=== PATIENT | female | born 1935 | race Caucasian/White ===

== ENCOUNTER 2019-06-03 07:44 | Emergency (ER) | payer OTHER, MEDICAID ==
[~2019-06-03] VITALS: Ht 152.4 cm; Wt 68.0 kg
[2019-06-03 07:45] VITALS: BP_SYST 147
[2019-06-03] MEDS ORDERED: NACL 0.9% 1,000 ML IV ONE (08:00)
--- NOTE | 2019-06-03 08:05 | NUR ---
PATIENT PRESENTS TO THE ER WITH HX OF ELEVATED BLOOD GLUCOSE THIS AM IN THE 500 RANGE; MORNING MEDICATIONS WERE ADMINISTERED AND BLOOD GLUCOSE AT ADMISSION WAS 311; PATIENT HAS HEP LOCK ON ARRIVAL #22 LEFT FOREARM; NO TRAUMA, NO OTHER REMARKABLE S/S; PATIENT IS DIAPERED; PATIENT TO ER BED #3 AT 0800 AND ERMD EVALUATION AT 0810
[2019-06-03 08:37] LABS: BASOPHILS % (AUTO) 0.8 % (0.0-2.0); EOSINOPHILS # (AUTO) 0.1 K/uL (0.0-0.4); EOSINOPHILS % (AUTO) 2.6 % (0.0-4.0); HEMATOCRIT 27.4 % (36-48); HEMOGLOBIN 9.2 g/dL (12.0-16.0); LYMPHOCYTES # (AUTO) 1.4 K/uL (1.0-5.5); LYMPHOCYTES % (AUTO) 25.5 % (20.5-51.5); MEAN CORPUSCULAR HEMOGLOBIN 30 pg (27-31); MEAN CORPUSCULAR HGB CONC 33 % (32-36); MEAN CORPUSCULAR VOLUME 88 fL (79.0-98.0); MONOCYTES # (AUTO) 0.5 K/uL (0.0-1.0); MONOCYTES % (AUTO) 8.3 % (1.7-9.3); NEUTROPHILS # (AUTO) 3.4 K/uL (1.8-7.7); NEUTROPHILS % (AUTO) 62.8 % (40.0-70.0); PLATELET COUNT (AUTO) 211 K/uL (130-430); RED CELL DISTRIBUTION WIDTH 14.2 % (9.0-15.0); WHITE BLOOD COUNT (AUTO) 5.5 K/uL (4.8-10.8)
--- NOTE | 2019-06-03 08:46 | NUR ---
EKG DC'ED BY ERMD; PATIENT CATHED FOR URINE PER ERMD VERBAL ORDER AND UX PERFORMED
[2019-06-03 08:51] LABS: ANION GAP 8 (5-15); CALCIUM 8.7 mg/dL (8.4-11.0); CHLORIDE 98 mmol/L (98-107); CREATININE 1.52 mg/dL (0.55-1.30); GLUCOSE 364 mg/dL (70-99); POTASSIUM 4.8 mmol/L (3.5-5.1); SODIUM SERUM 131 mmol/L (136-145); UREA NITROGEN, BLOOD 44 mg/dL (8-21)
[2019-06-03 08:56] LABS: ALANINE AMINOTRANSFERASE 33 U/L (12-78); ALBUMIN 3.6 g/dL (3.4-4.8); ASPARTATE AMINOTRANSFERASE 17 U/L (10-37); TOTAL BILIRUBIN 1.2 mg/dL (0.0-1.0)
[2019-06-03] MEDS ORDERED: INSULIN REGULAR, HUMAN 10 UNITS/0.1 ML INJ IVP ONE (09:15)
[2019-06-03 10:11] VITALS: BP_SYST 145
--- NOTE | 2019-06-03 10:17 | NUR ---
REASSESSMENT BY ERMD; PATIENT PREPARED FOR DISCHARGE; IV OUT AND DRESSED AND ACI GIVEN TO PATIENT/CAREGIVER WHO INDICTED FULL UNDERSTANDING; DISCHARGED AT 1030 VIA WC; IMPROVED WITH BLOOD GLUCOSE OF 248
== END 2019-06-03 10:30 | disposition home or self-care (01) ==
LOC: SED 07:44
DX: E11.65 Type 2 diabetes mellitus with hyperglycemia (principal); I10 Essential (primary) hypertension
CPT/HCPCS: 36415; 80053; 82962; 85025; 96361; 96374; 99283; J1815; J7030

== ENCOUNTER 2019-07-26 09:41 | Emergency (ER) | payer OTHER, MEDICAID ==
[~2019-07-26] VITALS: Ht 157.5 cm; Wt 81.6 kg
[2019-07-26 09:41] VITALS: BP_SYST 121
--- NOTE | 2019-07-26 09:41 | NUR ---
Placed in room 7. Placed on potline monitor, blood pressure machine and pulse oximeter. To gown for exam. Side rails up. Report given to SIRENA Ambrocio.
--- NOTE | 2019-07-26 09:45 | NUR ---
PT CAME TO ER FOR HYPERGLYCEMIA, GLUCOSE IS 404 UPON ARRIVAL. PT RESTING IN [facility] AWAITING
--- NOTE | 2019-07-26 09:58 | NUR ---
ER Dr. Smart at bedside examining patient.
[2019-07-26] MEDS ORDERED: PARO-41 PO (10:04)
[2019-07-26] MEDS ORDERED: LEVO25TA7 PO (10:04)
[2019-07-26] MEDS ORDERED: GLIP5TAB26 PO (10:04)
[2019-07-26] MEDS ORDERED: CELE100C PO (10:04)
[2019-07-26] MEDS ORDERED: MELO15TA13 PO (10:04)
[2019-07-26] MEDS ORDERED: INSU100V11 SQ (10:04)
[2019-07-26] MEDS ORDERED: CHOL500013 PO (10:04)
[2019-07-26] MEDS ORDERED: METO50TA7 PO (10:04)
[2019-07-26] MEDS ORDERED: METF-510 PO (10:04)
[2019-07-26] MEDS ORDERED: ROPI1TAB4 PO (10:04)
[2019-07-26] MEDS ORDERED: LIP40 PO (10:04)
[2019-07-26] MEDS ORDERED: LISI40TA4 PO (10:04)
[2019-07-26] MEDS ORDERED: TRAMADOL HCL PO (10:04)
--- NOTE | 2019-07-26 10:04 | NUR ---
Medication reconciliation completed with information provided by [facility]. Any prior medication reconciliation on file was reviewed and corrected.
[2019-07-26] MEDS ORDERED: NACL 0.9% 1,000 ML IV ONE (10:15)
[2019-07-26 11:23] LABS: BASOPHILS % (AUTO) 0.8 % (0.0-2.0); EOSINOPHILS # (AUTO) 0.1 K/uL (0.0-0.4); EOSINOPHILS % (AUTO) 2.6 % (0.0-4.0); HEMOGLOBIN 9.2 g/dL (12.0-16.0); LYMPHOCYTES # (AUTO) 1.7 K/uL (1.0-5.5); LYMPHOCYTES % (AUTO) 29.1 % (20.5-51.5); MEAN CORPUSCULAR HEMOGLOBIN 29 pg (27-31); MEAN CORPUSCULAR HGB CONC 33 % (32-36); MEAN CORPUSCULAR VOLUME 88 fL (79.0-98.0); MONOCYTES # (AUTO) 0.6 K/uL (0.0-1.0); MONOCYTES % (AUTO) 10.7 % (1.7-9.3); NEUTROPHILS # (AUTO) 3.3 K/uL (1.8-7.7); NEUTROPHILS % (AUTO) 56.8 % (40.0-70.0); PLATELET COUNT (AUTO) 185 K/uL (130-430); RED CELL DISTRIBUTION WIDTH 13.6 % (9.0-15.0); WHITE BLOOD COUNT (AUTO) 5.8 K/uL (4.8-10.8)
[2019-07-26 11:26] LABS: ANION GAP 11 (5-15); CALCIUM 8.4 mg/dL (8.4-11.0); CHLORIDE 104 mmol/L (98-107); GLUCOSE 375 mg/dL (70-99); POTASSIUM 4.5 mmol/L (3.5-5.1); SODIUM SERUM 138 mmol/L (136-145); UREA NITROGEN, BLOOD 36 mg/dL (8-21)
[2019-07-26 11:29] LABS: INR 0.9 (0.8-1.2); PROTHROMBIN TIME 9.3 SECS (9.5-12.5)
[2019-07-26 11:31] LABS: ALANINE AMINOTRANSFERASE 39 U/L (12-78); ALBUMIN 3.3 g/dL (3.4-4.8); ASPARTATE AMINOTRANSFERASE 35 U/L (10-37); TOTAL BILIRUBIN 0.5 mg/dL (0.0-1.0)
--- NOTE | 2019-07-26 11:41 | NUR ---
PT ASLEEP IN BED NO S/S OF DISTRESS AT THIS TIME VSS
[2019-07-26] MEDS ORDERED: INSULIN REGULAR, HUMAN 10 UNITS/0.1 ML INJ IVP ONE (12:15)
[2019-07-26 13:30] VITALS: BP_SYST 119
--- NOTE | 2019-07-26 13:30 | NUR ---
Patient given written and verbal discharge instructions and verbalizes understanding. ER MD discussed with patient the results and treatment provided. Patient in stable condition. ID arm band removed. IV catheter removed intact and dressing applied, no active bleeding. Patient educated on pain management and to follow up with PMD. Pain Scale 0. Opportunity for questions provided and answered. Medication side effect fact sheet provided.
== END 2019-07-26 13:30 | disposition home or self-care (01) ==
LOC: SED 09:41
DX: E11.65 Type 2 diabetes mellitus with hyperglycemia (principal); J02.9 Acute pharyngitis, unspecified; I10 Essential (primary) hypertension; E03.9 Hypothyroidism, unspecified; Z79.4 Long term (current) use of insulin; Z79.899 Other long term (current) drug therapy
CPT/HCPCS: 36415; 71045; 80053; 81002; 82962; 84484; 85025; 85610; 85730; 93005; 96360; 99285; J7030

== ENCOUNTER 2020-02-23 18:42 | Inpatient (IN) | payer OTHER, MEDICAID, SELFPAY ==
[~2020-02-23] VITALS: Ht 162.6 cm; Wt 77.1 kg
[2020-02-23 18:42] VITALS: BP_SYST 128
[~2020-02-23 18:42] MED LIST: CELE100C PO; CHOL500013 PO; GLIP5TAB26 PO; INSU100V11 SQ; LEVO25TA7 PO; LIP40 PO; LISI40TA4 PO; MELO15TA13 PO; METF-510 PO; METO50TA7 PO; PARO-41 PO; ROPI1TAB6 PO; TRAMADOL HCL PO
[2020-02-23] MEDS ORDERED: INSU100I26 SQ (18:52)
[2020-02-23] MEDS ORDERED: FURO20TA4 PO (18:52)
[2020-02-23] MEDS ORDERED: HYDR-3917 PO (18:52)
[2020-02-23] MEDS ORDERED: SSNOVOLOG SUBCUT (18:52)
--- NOTE | 2020-02-23 18:53 | NUR ---
Medication reconciliation completed with information provided by patient's medication list. Any prior medication reconciliation on file was reviewed and corrected.
--- NOTE | 2020-02-23 18:55 | NUR ---
Pt came to ER after she rolled out of bed, she was found on ground with no injuries. Began to desaturate with school principal on scene and was sent over via BLS. Pt resting in rney on 1L nasal cannula, resting comfortably, no distress.
--- NOTE | 2020-02-23 19:00 | NUR ---
ER at bedside examining patient.
--- NOTE | 2020-02-23 19:05 | NUR ---
# 20 gauge angiocath placed to R HAND. Use of asceptic technique. Opsite placed over site. Blood return noted. Blood for lab drawn from site. Flushed with 10 cc of normal saline. No evidence of infiltration noted. Patient tolerated well.
--- NOTE | 2020-02-23 19:15 | NUR ---
REPORT RECEIVED FROM SIRENA NGUYEN
[2020-02-23] MEDS ORDERED: NACL 0.9% 1,000 ML IV ONE (19:30)
--- NOTE | 2020-02-23 19:39 | NUR ---
XRAY AT THE BEDSIDE
[2020-02-23 19:51] LABS: BASOPHILS # (AUTO) 0.1 K/uL (0.0-0.2); EOSINOPHILS # (AUTO) 0.2 K/uL (0.0-0.4); EOSINOPHILS % (AUTO) 3.8 % (0.0-4.0); HEMATOCRIT 31.2 % (36-48); HEMOGLOBIN 10.2 g/dL (12.0-16.0); LYMPHOCYTES # (AUTO) 1.1 K/uL (1.0-5.5); LYMPHOCYTES % (AUTO) 22.8 % (20.5-51.5); MEAN CORPUSCULAR HEMOGLOBIN 27 pg (27-31); MEAN CORPUSCULAR HGB CONC 33 % (32-36); MEAN CORPUSCULAR VOLUME 81 fL (79.0-98.0); MONOCYTES # (AUTO) 0.4 K/uL (0.0-1.0); NEUTROPHILS # (AUTO) 3.3 K/uL (1.8-7.7); NEUTROPHILS % (AUTO) 65.4 % (40.0-70.0); PLATELET COUNT (AUTO) 212 K/uL (130-430); RED BLOOD CELL COUNT(AUTO) 3.83 MIL/uL (4.2-6.2); RED CELL DISTRIBUTION WIDTH 16.1 % (9.0-15.0)
[2020-02-23 20:02] LABS: ANION GAP 7 (5-15); CALCIUM 9.1 mg/dL (8.4-11.0); CHLORIDE 98 mmol/L (98-107); CREATININE 2.37 mg/dL (0.55-1.30); GLUCOSE 295 mg/dL (70-99); POTASSIUM 4.8 mmol/L (3.5-5.1); SODIUM SERUM 134 mmol/L (136-145); UREA NITROGEN, BLOOD 63 mg/dL (8-21)
[2020-02-23 20:09] LABS: PROTHROMBIN TIME 10.1 SECS (9.5-12.5)
--- NOTE | 2020-02-23 20:15 | NUR ---
# 14 FR In and Out catheter with use of sterile technique. Immediate return of 20 ml CLEAR, YELLO urine noted. Urine sample collected and sent to lab. Pt tolerated procedure WELL. Patient unable to toilet self.
[2020-02-23 20:18] LABS: ALANINE AMINOTRANSFERASE 32 U/L (12-78); ALBUMIN 3.1 g/dL (3.4-4.8); ASPARTATE AMINOTRANSFERASE 42 U/L (10-37); FREE T4 (FREE THYROXINE) 0.8 ng/dl (0.8-1.5); LACTATE DEHYDROGENASE 265 U/L (81-234); THYROID STIMULATING HORMONE 2.94 uIu/mL (0.36-3.74); TOTAL BILIRUBIN 0.7 mg/dL (0.0-1.0)
--- NOTE | 2020-02-23 20:20 | NUR ---
COVID SWABS DONE, SPECIMENS SENT TO LAB
[2020-02-23] MEDS ORDERED: AZITHROMYCIN 500 MG in NS 250 ML IV ONE (20:30)
[2020-02-23] MEDS ORDERED: cefTRIAXone 1 GM IVPB PREMIX 50 ML IV ONE (20:30)
[2020-02-23 20:40] LABS: BILIRUBIN,URINE NEGATIVE (NEGATIVE); BLOOD, URINE NEGATIVE (NEGATIVE); CLARITY/URINE CLEAR (CLEAR); COLOR,URINE YELLOW (YELLOW); GLUCOSE,URINE 3+ (NEGATIVE); KETONES,URINE NEGATIVE (NEGATIVE); LEUKOCYTE ESTERASE ,URINE NEGATIVE (NEGATIVE); NITRITE, URINE NEGATIVE (NEGATIVE); PH,URINE 5.5 (5.0-8.0); PROTEIN URINE NEGATIVE (NEGATIVE); UROBILINOGEN,URINE 0.2 (0.2-1.0)
--- NOTE | 2020-02-23 20:50 | NUR ---
PT TOOK OUT 20G IV ON LEFT WRIST. BLEEDING CONTROLLED.
[2020-02-23 21:01] LABS: RBC,URINE 0-3 /HPF (0-3); WBC,URINE 0-3 /HPF (0-3)
[2020-02-23 21:02] LABS: BACTERIA,URINE MODERATE /HPF (None Seen); URINE AMORPHOUS URATE 2+ /HPF (None Seen)
[2020-02-23 21:03] LABS: MUCUS,URINE None Seen /LPF (None Seen)
--- NOTE | 2020-02-23 21:05 | NUR ---
# 20 gauge angiocath placed to LEFT FOREARM. Use of asceptic technique. Opsite placed over site. Blood return noted. Flushed with 10 cc of normal saline. No evidence of infiltration noted. Patient tolerated well.
[2020-02-23 21:07] LABS: CKMB RELATIVE INDEX 1.2 (0.0-2.9); CREATINE KINASE MB 2.9 ng/mL (0-3.6)
[2020-02-23 21:16] LABS: C-REACTIVE PROTEIN QUANT 2.1 mg/dL (0-0.5)
[2020-02-23] MEDS ORDERED: AZITHROMYCIN 500 MG/VIAL (ZITHROMAX) IV ONE (21:22)
--- NOTE | 2020-02-23 21:28 | NUR ---
SPOKE WITH CHARGE NURSE TO REQUEST TELE BED.
--- NOTE | 2020-02-23 21:28 | NUR ---
ADMIT ORDERS RECEIVED FROM DR. NARVAEZ.
[2020-02-23] MEDS ORDERED: IPRATROPIUM/ALBUTEROL SULFATE 3 ML AMPUL.NEB (DUONEB) INH ONE (21:30)
[2020-02-23] MEDS ORDERED: DEXAMETHASONE SOD PHOSPHATE 4 MG/ML VIAL IVP ONE (21:30)
--- NOTE | 2020-02-23 21:30 | NUR ---
CALLED RESPIRATORY FOR BREATHING TX
--- NOTE | 2020-02-23 22:10 | NUR ---
Patient will be admitted to care of . Admitted to TELE unit. Will go to room 2. Belongings list completed. Complete and up to date summary report printed. SBAR report to be given at bedside with opportunity for questions.
--- NOTE | 2020-02-23 22:24 | NUR ---
ADMISSION: The patient, MARIA DOLORES MONDRAGON, 84 y/o, F admitted by MAIA NARVAEZ MD, with the diagnosis of Acute Respiratory Failure and Pneumonia , to room 134 B . [facility] RN is aware. Addendum: 02/23/20 at 2228 by Oscar Tapia RN PT IS PUI FOR COVID 19 , WILL MAINTAIN ISOLATION PRECAUTION .
[2020-02-23 22:45] VITALS: BP_SYST 129
--- NOTE | 2020-02-23 22:45 | NUR ---
NOTES: Dr. Moreno was here, seen pt.
[2020-02-23] MEDS ORDERED: IPRATROPIUM/ALBUTEROL SULFATE 3 ML AMPUL.NEB (DUONEB) INH PRN (23:00)
[2020-02-23] MEDS ORDERED: ACETAMINOPHEN 325 MG TABLET PO PRN (23:00)
[2020-02-23] MEDS ORDERED: AZITHROMYCIN 500 MG in NS 250 ML IV SCH (23:00)
[2020-02-23] MEDS ORDERED: DEXTROSE 50% JECT 50 ML DISP.SYRIN IVP PRN (23:00)
[2020-02-23] MEDS ORDERED: 0.45% NACL 1,000 ML IV SCH (23:00)
--- NOTE | 2020-02-23 23:00 | NUR ---
ADMISSION PHYSICAL ASSESSMENT NOTES; pt. very restless, speaks Portugese, moves all extremities, no weakness noted. IV NS bolus still infusing. took over from nurse Moore after admission. unable to get information from pt. placed on school lunch monitor. placed on fall risk, bed alarm on. contact isolation observed for PUI Covid.
[2020-02-23] MEDS ORDERED: PANTOPRAZOLE SODIUM 40 MG/VIAL (PROTONIX) IVP ONE (23:15)
[2020-02-23 23:19] VITALS: BP_SYST 115
[2020-02-23] MEDS ORDERED: ASPIRIN 81 MG TABLET(ECOTRIN) PO ONE (23:30)
--- NOTE | 2020-02-23 23:30 | NUR ---
NOTES: still restless, cannot keep still. la cath insertion done aseptically with nurse Oscar helping per MD ordered, drained yellow urine output, urine specimen will be sent to lab.
--- NOTE | 2020-02-24 | NUR ---
NOTES: due po meds given and able to swallow. another IV antibiotic order, NS bolus completed.
[2020-02-24] MEDS: QUEtiapine FUMARATE 25 MG TABLET PO SCH ×2 (00:02→18:44)
[2020-02-24] MEDS: PIPERACILLIN/TAZO 2.25G/DEX-IS 50 ML IV SCH ×5 (00:05→23:53)
[2020-02-24] MEDS ORDERED: PIPERACILLIN/TAZOBACTAM 2.25 GM VIAL IV ONE (00:09)
[2020-02-24] MEDS: HEPARIN SODIUM,PORCINE 5,000 UNITS/ML VIAL SUBCUT SCH ×3 (00:09→21:43)
[2020-02-24] MEDS: traMADol HCL HCL 50 MG TABLET (ULTRAM) PO SCH ×5 (00:18→23:54)
--- NOTE | 2020-02-24 00:30 | NUR ---
NOTES: employee communications specialist patches replaced and tele box. still restless but less, condition guarded. fall risk precaution.unable to use call ight, frequent rounds.
[2020-02-24 00:42] LABS: BILIRUBIN,URINE NEGATIVE (NEGATIVE); BLOOD, URINE NEGATIVE (NEGATIVE); CLARITY/URINE CLEAR (CLEAR); COLOR,URINE YELLOW (YELLOW); GLUCOSE,URINE 3+ (NEGATIVE); KETONES,URINE NEGATIVE (NEGATIVE); LEUKOCYTE ESTERASE ,URINE NEGATIVE (NEGATIVE); NITRITE, URINE NEGATIVE (NEGATIVE); PH,URINE 5.5 (5.0-8.0); PROTEIN URINE NEGATIVE (NEGATIVE); UROBILINOGEN,URINE 0.2 (0.2-1.0)
--- NOTE | 2020-02-24 01:28 | NUR ---
NOTES: pt. sleeping when checked. fall risk precautions observed. IVF infusing.
--- NOTE | 2020-02-24 03:05 | NUR ---
NOTES: charge nurse Oscar saying pt. was trying to get out of bed earlier. pt. calmer and sleeping now when checked. on fall risk.
--- NOTE | 2020-02-24 04:23 | NUR ---
NOTES: condition continue to monitor. pt. sleeping but occasionally toss and turn.
--- NOTE | 2020-02-24 05:50 | NUR ---
NOTES: Nuc Veeqo tech here, to take pt. for VQ scan( lung scan), went with pt. quite restless on the test.
--- NOTE | 2020-02-24 06:15 | NUR ---
NOTES: came back from [employer], was about to do CT scan of the head but pt. quite restless, will have to call MD for sedation for the test.
[2020-02-24 06:25] LABS: BASOPHILS % (AUTO) 0.5 % (0.0-2.0); EOSINOPHILS % (AUTO) 0.1 % (0.0-4.0); HEMATOCRIT 27.8 % (36-48); HEMOGLOBIN 9.1 g/dL (12.0-16.0); LYMPHOCYTES # (AUTO) 0.5 K/uL (1.0-5.5); MEAN CORPUSCULAR HEMOGLOBIN 27 pg (27-31); MEAN CORPUSCULAR HGB CONC 33 % (32-36); MEAN CORPUSCULAR VOLUME 82 fL (79.0-98.0); MONOCYTES # (AUTO) 0.1 K/uL (0.0-1.0); MONOCYTES % (AUTO) 1.5 % (1.7-9.3); NEUTROPHILS # (AUTO) 4.4 K/uL (1.8-7.7); NEUTROPHILS % (AUTO) 87.9 % (40.0-70.0); PLATELET COUNT (AUTO) 177 K/uL (130-430); RED BLOOD CELL COUNT(AUTO) 3.38 MIL/uL (4.2-6.2); RED CELL DISTRIBUTION WIDTH 15.6 % (9.0-15.0)
--- NOTE | 2020-02-24 06:30 | NUR ---
CLOPSING NOTES; complete linen changed done. IV resume and monitor. la cath intact. still thrashing all over the bed. pt. due med for pain given. BS checked 316 with sliding scale coverage. observed contact isolation.
[2020-02-24] MEDS: LEVOTHYROXINE SODIUM 0.025 MG TABLET PO SCH (07:00)
[2020-02-24] MEDS: INSULIN REGULAR, HUMAN 100 UNITS/ML, 10 ML VIAL (humuLIN R) SUBCUT PRN ×4 (07:13→21:53)
[2020-02-24 07:43] LABS: TOTAL IRON BIND. CAPACITY 382 ug/dL (250-450)
--- NOTE | 2020-02-24 07:45 | NUR ---
Opening Notes Patient is awake, alert and oriented x2. Remains on isolation precautions. Patient speaks Sami, minimal Thai. Able to follow simple commands. Patient is anxious, noted moving around in bed, attempting to ambulate/ No resp distress noted. Breathing is even and unlabored. Pt remains on continuous oxygen via NC @ 2 LPM. Patient is noted attempting to remove NC off. IV site noted on left FA, 20 gauge intact at this time. Patient is noted attempting to remove lines, wrapped IV site with gauze. D5NS @ 100 ml/hr, infusing well. Patient needs a stool sample. Patient is eating breakfast, ate 100% of meal. Ramirez catheter in place, draining by gravity, yellow and clear urine noted. Bed in lowest position, alarm on, locked. Will continue to monitor.
[2020-02-24 08:19] LABS: ALANINE AMINOTRANSFERASE 39 U/L (12-78); ALBUMIN 2.7 g/dL (3.4-4.8); ANION GAP 10 (5-15); ASPARTATE AMINOTRANSFERASE 45 U/L (10-37); CALCIUM 8.3 mg/dL (8.4-11.0); CHLORIDE 97 mmol/L (98-107); CREATININE 2.15 mg/dL (0.55-1.30); FREE T4 (FREE THYROXINE) 0.5 ng/dL (0.6-1.6); GLUCOSE 323 mg/dL (70-99); POTASSIUM 4.9 mmol/L (3.5-5.1); SODIUM SERUM 130 mmol/L (136-145); THYROID STIMULATING HORMONE 1.25 uIu/mL (0.34-4.82); TOTAL BILIRUBIN 0.7 mg/dL (0.0-1.0); UREA NITROGEN, BLOOD 53 mg/dL (8-21)
--- NOTE | 2020-02-24 08:38 | NUR ---
Nutrition Update Tye scale 16 noted. Pt admitted for Acute Respiratory Failure Diet: Mechanical Soft, Puree Diet BMI: 29.2 kg/m2 RD to follow per nutrition care standards.
[2020-02-24] MEDS: CHOLECALCIFEROL (VITAMIN D3) 2,000 UNIT TABLET PO SCH ×2 (09:00→21:03)
[2020-02-24] MEDS: ASPIRIN 81 MG TABLET(ECOTRIN) PO SCH (09:00)
[2020-02-24] MEDS: PANTOPRAZOLE SODIUM 40 MG/VIAL (PROTONIX) IVP SCH (09:00)
[2020-02-24] MEDS: METOPROLOL SUCCINATE 50 MG TAB.SR.24H (TOPROL XL) PO SCH (09:00)
[2020-02-24] MEDS: NACL 0.9% 1,000 ML IV SCH (10:00)
--- NOTE | 2020-02-24 10:00 | NUR ---
Notes Patient is attempting to get out of bed, bed alarm is alarming. Nurse assisted patient back to bed, call light within reach. Bed in lowest position, locked. No resp distress noted. Breathing is even and unlabored. Denies any pain at this time. Will continue to monitor.
--- NOTE | 2020-02-24 10:20 | NUR ---
CHANGE IV FLUIDS Changed IVF: NS @ 100 cc/hr, infusing well at this time. Will continue to monitor.
--- NOTE | 2020-02-24 11:30 | NUR ---
Blood Sugar Patients BS was noted at 346 mg/dL. Per sliding scale, administered 6 units of regular insulin, tolerated well. Will continue to monitor.
[2020-02-24 12:00] VITALS: BP_SYST 126
--- NOTE | 2020-02-24 12:02 | NUR ---
Notes Patient is laying in bed, resting at this time. No resp distress noted. Breathing is even and unlabored. Denies any pain at this time. Will continue to monitor.
--- NOTE | 2020-02-24 14:00 | NUR ---
Patient is being seen and examined by PHYSICAL THERAPY FWW by bedside. Gait unsteady, supervision is needed.
[2020-02-24] MEDS: DIPHENHYDRAMINE INJ 50 MG/ML VIAL IVP PRN ×2 (14:05→21:42)
--- NOTE | 2020-02-24 14:06 | NUR ---
Notes/Benadryl 25 mg IVP x agitation Patient is laying in bed, resting at this time. Agitation noted. Noted attempting to get out of bed and tossing and turning in bed. Patient is noted removing her NC, nurse applied NC back on patient but patient refuses to wear NC. Administered Benadryl 25 mg IVP, tolerated well. Will continue to monitor.
--- NOTE | 2020-02-24 14:07 | NUR ---
CONSULTATION PAGED/CALLED Reason for Consultation: [] CHF Person Who was Notified: [] YAMILEX Consulting Physician: [] DR DREW Mines Inspector Specialty: [] CARDIO Ordering Physician: [] DR NARVAEZ
--- NOTE | 2020-02-24 14:08 | NUR ---
Patient is being seen and examined by DR. NARVAEZ
[2020-02-24] MEDS ORDERED: INSULIN GLARGINE 100 UNITS/ML 10 ML VIAL SUBCUT ONE (14:15)
--- NOTE | 2020-02-24 14:37 | NUR ---
COVID NEGATIVE, RAPID AND PCR
--- NOTE | 2020-02-24 14:48 | NUR ---
Blood Sugar/Lantus 10 units Patients BS was noted at 355 mg/dL. Administered scheduled 10 units of Lantus insulin, tolerated well. Will continue to monitor.
--- NOTE | 2020-02-24 14:52 | NUR ---
CONSULTATION PAGED/CALLED Reason for Consultation: [] RENAL FAILURE Person Who was Notified: [] RICHARD Consulting Physician: [] DR MCALLISTER Morphology Teacher Specialty: [] NEPHROLOGY Ordering Physician: [] DR NARVAEZ
[2020-02-24 16:00] VITALS: BP_SYST 154
--- NOTE | 2020-02-24 16:25 | NUR ---
Notes Patient is laying in bed, resting at this time. Patient is agitated, attempts to get out of bed. Reoriented the patient. Bed in lowest position, alarm on, locked. No resp distress noted. Breathing is even and unlabored. Denies any pain at this time. Will continue to monitor.
--- NOTE | 2020-02-24 17:17 | NUR ---
ATTENDING MD DR NARVAEZ WAS CALLED, RE: BS OF 437 (HIGH). SPOKE TO SUNDAR.
--- NOTE | 2020-02-24 17:30 | NUR ---
Blood Sugar: HIGH--437 mg/dL Patients blood sugar was noted at 437 mg/dL/ Administered 12 units of regular insulin and paged Dr. Moreno. Dr. Moreno called back, no new orders at this time d/t administration of Lantus 10 units from earlier. Pt shows no signs of hyperglycemia at this time. Will continue to monitor.
--- NOTE | 2020-02-24 18:56 | NUR ---
Closing Notes Patient is awake, alert and oriented x1. No resp distress noted. Breathing is even and unlabored. Patient remains on continuous oxygen via NC @ 2 LPM but patient is noted taking off oxygen. Patient shows no pain at this time. Patient is able to eat dinner independently, ate 75% of meal. IV site on left AC, 20 gauge intact at this time, NS @ 100 cc/hr, infusing well. Ramirez catheter in place. Emptied out 1200 cc of clear and yellow urine. All needs met at this time. Safety and fall precautions in place. Bed in lowest position, alarm on, locked. Will continue to monitor.
--- NOTE | 2020-02-24 19:15 | NUR ---
CHANGE OF SHIFT; pt. transferred from [facility] via bed to room 104 A. no distress. report given by nurse Cheryl. on fall risk precaution.
[2020-02-24 20:00] VITALS: BP_SYST 158
--- NOTE | 2020-02-24 20:00 | NUR ---
NOTES: pt. getting restless, thrashing in bed and trying to get out of bed. IVF on left forearm, wrapped with gauze, IVF continuous. off O2. face flushed. moves all extremities. cardiac/vascular sonographer and shows sinus rhythm. la cath to OSD with yellow urine output. bed alarm on. condition guarded.
[2020-02-24] MEDS: AZITHROMYCIN 500 MG in NS 250 ML IV SCH (21:01)
[2020-02-24] MEDS: ATORVASTATIN 20 MG TABLET PO SCH (21:04)
--- NOTE | 2020-02-24 21:45 | NUR ---
NOTES: Dr. Duffy here, seen pt. for consult. Addendum: 02/24/20 at 2236 by Rhiannon Dutta RN Late entry; 2144 pt. very restless and agitated, thrashing in bed and trying to get out of bed, IV Benadryl given as ordered.
--- NOTE | 2020-02-24 21:50 | NUR ---
NOTES: due medications given. BS checked 383 with sliding scale coverage given, repositioned and pulled up in bed kept covered up. bed alarm on, fall risk precautions., unable to use call light, room close to nurses station.
[2020-02-24] MEDS: INSULIN GLARGINE 100 UNITS/ML 10 ML VIAL SUBCUT SCH (21:56)
--- NOTE | 2020-02-24 22:15 | NUR ---
NOTES: Dr. Torres here, seen pt. no further order.
--- NOTE | 2020-02-24 22:45 | NUR ---
NOTES: pt. less restless, condition observed.
[2020-02-25] VITALS: BP_SYST 135
[2020-02-25] MEDS: NACL 0.9% 1,000 ML IV SCH ×2 (00:09→17:21)
--- NOTE | 2020-02-25 00:30 | NUR ---
NOTES: pt. still restless, repositioned. due med given. pt. needs attended.
--- NOTE | 2020-02-25 02:14 | NUR ---
NOTES: pt. was able to sleep for short time and then starsts thrashing all over the bed, able to remove gauze on her IV site. repositioned. cardiac pattern unchanged. bed alarm on.
[2020-02-25] MEDS: DIPHENHYDRAMINE INJ 50 MG/ML VIAL IVP PRN ×2 (02:36→19:56)
--- NOTE | 2020-02-25 02:36 | NUR ---
NOTES: medicated with IV Benadryl, still pretty restless, getting out of bed and anxious. repositioned. kept warm and covered with blanket. fall risk precautions.
--- NOTE | 2020-02-25 03:30 | NUR ---
NOTES: pt. able to sleep for a short period of time. condition observed.
--- NOTE | 2020-02-25 04:30 | NUR ---
NOTES: pt. woke up and starts thrashing in bed, attempted to pull out catheter. repositioned. side rails padded since pt. getting out of bed. alarm on. fall risk precautions. condition guarded.
[2020-02-25] MEDS: PIPERACILLIN/TAZO 2.25G/DEX-IS 50 ML IV SCH ×3 (05:48→17:21)
--- NOTE | 2020-02-25 06:00 | NUR ---
NOTES: pt. blood draw done. IVF patent. pretty awake less restless.
[2020-02-25] MEDS: traMADol HCL HCL 50 MG TABLET (ULTRAM) PO SCH ×3 (06:17→17:26)
[2020-02-25] MEDS: LEVOTHYROXINE SODIUM 0.025 MG TABLET PO SCH (06:17)
--- NOTE | 2020-02-25 06:45 | NUR ---
CLOSING NOTES; BS checked, no sliding scale coverage. IVF patent and la cath intact. bed alarm on, on fall risk precautions. O2 on @ 2l/nc. occasionally picks on her cover, catheter, always frequently reminding her to relax. for further care and assistance. fall risk precautions.
--- NOTE | 2020-02-25 07:00 | NUR ---
OPENING NOTE Assumed care from Rhiannon PACK supervisor rice milling at 0700 am. Patient alert awake. IV fluid infusing. IV patent. On 2 liters of oxygen. No respiratory distress noted. 0900: Patient tolerated breakfast well. Medication given to patient crushed and mixed with apple sauce. Vital signs stable. Will continue care. Addendum: 02/25/20 at 1510 by Jackelyn Yu RN 1100: Patient climbing out of bed. Patient has mild cognitive disorder. Will continue to monitor patient closely. 1300: Order received to place patient on one to one observation. Patient moved into room 105-A. Vital signs stable. No respiratory distress noted at this time. 1500: Patient continues to be restless. Sitter at the bed side. US done. Will continue care Addendum: 02/25/20 at 1846 by Jackelyn Yu RN 1800: Patient BS elevated covered with sliding scale. Sitter at patient beside. Will endorse to supervisor rice milling.
[2020-02-25 07:02] LABS: ALANINE AMINOTRANSFERASE 39 U/L (12-78); ALBUMIN 2.9 g/dL (3.4-4.8); ANION GAP 6 (5-15); ASPARTATE AMINOTRANSFERASE 40 U/L (10-37); CALCIUM 8.4 mg/dL (8.4-11.0); CHLORIDE 106 mmol/L (98-107); CHOLESTEROL 101 mg/dL (<200); CREATININE 1.93 mg/dL (0.55-1.30); GLUCOSE 118 mg/dL (70-99); HDL CHOLESTEROL 46 mg/dL (>55); LDL CHOLESTEROL 44 mg/dL (<100); POTASSIUM 4.2 mmol/L (3.5-5.1); SODIUM SERUM 138 mmol/L (136-145); TOTAL BILIRUBIN 0.6 mg/dL (0.0-1.0); TRIGLYCERIDES 66 mg/dL (30-150); UREA NITROGEN, BLOOD 52 mg/dL (8-21)
[2020-02-25 07:43] LABS: BASOPHILS # (AUTO) 0.1 K/uL (0.0-0.2); BASOPHILS % (AUTO) 0.8 % (0.0-2.0); EOSINOPHILS # (AUTO) 0.1 K/uL (0.0-0.4); EOSINOPHILS % (AUTO) 1.8 % (0.0-4.0); HEMATOCRIT 26.2 % (36-48); HEMOGLOBIN 8.6 g/dL (12.0-16.0); LYMPHOCYTES # (AUTO) 1.5 K/uL (1.0-5.5); LYMPHOCYTES % (AUTO) 19.7 % (20.5-51.5); MEAN CORPUSCULAR HEMOGLOBIN 27 pg (27-31); MEAN CORPUSCULAR HGB CONC 33 % (32-36); MEAN CORPUSCULAR VOLUME 81 fL (79.0-98.0); MONOCYTES # (AUTO) 0.5 K/uL (0.0-1.0); MONOCYTES % (AUTO) 6.7 % (1.7-9.3); NEUTROPHILS # (AUTO) 5.3 K/uL (1.8-7.7); PLATELET COUNT (AUTO) 182 K/uL (130-430); RED BLOOD CELL COUNT(AUTO) 3.22 MIL/uL (4.2-6.2); RED CELL DISTRIBUTION WIDTH 16.1 % (9.0-15.0); WHITE BLOOD COUNT (AUTO) 7.5 K/uL (4.8-10.8)
[2020-02-25] MEDS: PANTOPRAZOLE SODIUM 40 MG/VIAL (PROTONIX) IVP SCH (08:15)
[2020-02-25] MEDS: ASPIRIN 81 MG TABLET(ECOTRIN) PO SCH (08:16)
[2020-02-25] MEDS: CHOLECALCIFEROL (VITAMIN D3) 2,000 UNIT TABLET PO SCH ×2 (08:16→21:13)
[2020-02-25] MEDS: METOPROLOL SUCCINATE 50 MG TAB.SR.24H (TOPROL XL) PO SCH (08:16)
[2020-02-25] MEDS: HEPARIN SODIUM,PORCINE 5,000 UNITS/ML VIAL SUBCUT SCH ×2 (08:17→21:14)
[2020-02-25 08:19] LABS: FOLATE (FOLIC ACID) 12.6 ng/mL (>3.0)
[2020-02-25 08:54] VITALS: BP_SYST 160
[2020-02-25] MEDS ORDERED: INSULIN GLARGINE 100 UNITS/ML 10 ML VIAL SUBCUT SCH (09:00)
--- NOTE | 2020-02-25 11:02 | NUR ---
Dietitian Recommendations * Recommend CCHO diet, texture per FREIGHT REPRESENTATIVE recs * Recommend Glucerna BID (Provides additional 440 kcals and 20 g Pro/day) * Encourage fluid and PO intake Please see Nutrition Assessment for details. SS, RD
--- NOTE | 2020-02-25 11:15 | NUR ---
ATTENDING MD DR NARVAEZ WAS CALLED, RE: ORDER FOR SITTER. SPOKE TO RAMAKRISHNA.
[2020-02-25 11:46] VITALS: BP_SYST 131
[2020-02-25 11:47] VITALS: BP_SYST 113
[2020-02-25 15:50] VITALS: BP_SYST 151
[2020-02-25] MEDS ORDERED: CYANOCOBALAMIN 1000 mCg TABLET PO ONE (17:00)
[2020-02-25] MEDS: INSULIN REGULAR, HUMAN 100 UNITS/ML, 10 ML VIAL (humuLIN R) SUBCUT PRN ×2 (17:15→21:43)
[2020-02-25] MEDS: SOD FERRIC GLUC COMPLEX/SUC 125 MG in NS 100 ML IV SCH (17:21)
[2020-02-25] MEDS: QUEtiapine FUMARATE 25 MG TABLET PO SCH ×2 (17:22→21:12)
--- NOTE | 2020-02-25 18:46 | NUR ---
CLOSING NOTE Patient remain stable during this shift. Please see all nursing note Addendum: 02/25/20 at 1847 by Jackelyn Yu RN Assumed care from Rhiannon PACK continuous washer operator at 0700 am. Patient alert awake. IV fluid infusing. IV patent. On 2 liters of oxygen. No respiratory distress noted. 0900: Patient tolerated breakfast well. Medication given to patient crushed and mixed with apple sauce. Vital signs stable. Will continue care. Addendum: 02/25/20 at 1510 by Jackelyn Yu RN 1100: Patient climbing out of bed. Patient has mild cognitive disorder. Will continue to monitor patient closely. 1300: Order received to place patient on one to one observation. Patient moved into room 105-A. Vital signs stable. No respiratory distress noted at this time. 1500: Patient continues to be restless. Sitter at the bed side. US done. Will continue care Addendum: 02/25/20 at 1846 by Jackelyn Yu RN 1800: Patient BS elevated covered with sliding scale. Sitter at patient beside. Will endorse to continuous washer operator.
[2020-02-25 20:00] VITALS: BP_SYST 160
--- NOTE | 2020-02-25 20:00 | NUR ---
Opening notes Pt alert, awake, restless, pulling on tubes. VSS, afebrile, O2 sat 95% on room air. Sitter at bedside. IVF infusing at ordered rate L. FA 22 clear and patent, wrapped in kerlix. Kramer catheter draining to gravtiy with light orange urine. Bed low, locked, siderails up x4. Will continue to monitor pt.
--- NOTE | 2020-02-25 20:41 | NUR ---
CONSULTATION PAGED/CALLED Reason for Consultation: UNSTEADY GAIT Person Who was Notified: DR. DE LOS SANTOS. Consulting Physician: DR. DE LOS SANTOS Sap Bobj Developer Specialty: Ordering Physician: BRICE
[2020-02-25] MEDS: ATORVASTATIN 20 MG TABLET PO SCH (21:12)
[2020-02-25] MEDS: AZITHROMYCIN 500 MG in NS 250 ML IV SCH (21:12)
--- NOTE | 2020-02-25 21:45 | NUR ---
Blood sugar Pt awake, anxious. Blood sugar checked 512. Paged Dr. Moreno and orders received to give Regular insulin 20 units x1 now and Lantus insulin 25 units BID. Also informed pt is still agitated despite Benadryl IVP being given, orders received. Will carry out.
[2020-02-25] MEDS: INSULIN GLARGINE 100 UNITS/ML 10 ML VIAL SUBCUT SCH (21:51)
--- NOTE | 2020-02-25 21:56 | NUR ---
HIGH ALERT NOTE: Called Dr. Moreno back at [phone] identified within the medical roster to verify physician authenticity. Insulin Regular 20 units x1.
[2020-02-25] MEDS ORDERED: INSULIN REGULAR, HUMAN 100 UNITS/ML, 10 ML VIAL (humuLIN R) SUBCUT ONE (22:00)
[2020-02-25] MEDS ORDERED: INSULIN REGULAR, HUMAN 100 UNITS/ML, 10 ML VIAL SUBCUT ONE (22:00)
--- NOTE | 2020-02-25 22:20 | NUR ---
Pericare Pt incontinent of BM. Pericare provided per HOUSE MOVER HELPER assist. To monitor.
[2020-02-25] MEDS ORDERED: HALOPERIDOL LACTATE 5 MG/ML VIAL IM PRN (22:30)
--- NOTE | 2020-02-25 22:35 | NUR ---
CONSULTATION PAGED/CALLED Reason for Consultation: agitation Person Who was Notified: Consulting Physician: marianne Assistant Professor Of Philosophy Specialty: Ordering Physician: shira called exchange and they said that doctor Mena is adult education professional for the weekend he is not staffed here. reached out to doctor Marianne to see you will cover the weekend awaiting response. house sup is aware
--- NOTE | 2020-02-25 22:40 | NUR ---
HIGH ALERT NOTE: Called Dr. Moreno back at [phone] identified within the medical roster to verify physician authenticity. Benadryl 25mg IVP x1.
[2020-02-25] MEDS ORDERED: DIPHENHYDRAMINE INJ 50 MG/ML VIAL IVP ONE (22:45)
[2020-02-26] MEDS: PIPERACILLIN/TAZO 2.25G/DEX-IS 50 ML IV SCH ×5 (00:38→23:13)
[2020-02-26] MEDS: traMADol HCL HCL 50 MG TABLET (ULTRAM) PO SCH ×4 (00:38→19:03)
--- NOTE | 2020-02-26 00:38 | NUR ---
Rounds Pt asleep, easily awakes, calm. IV antibiotic administered at ordered rate. Ramirez catheter draining to gravity with good amount of urine. To monitor.
[2020-02-26 01:36] VITALS: BP_SYST 153
--- NOTE | 2020-02-26 03:00 | NUR ---
Rounds Pt asleep, respirations even and unlabored. IVF infusing at ordered rate L. FA 22G clear and patent. Sitter at bedside. Will continue to mointor closely.
--- NOTE | 2020-02-26 03:50 | NUR ---
Stool OB Pt incontinent of BM, pericare provided and stool OB collected and sent to lab.
--- NOTE | 2020-02-26 05:47 | NUR ---
Closing notes/Blood sugar Pt asleep, easily awakens when repositioned. No s/s distress noted. Not agitated at this time. O2 97% on 2L via NC. Blood sugar checked 129. IVF infusing at ordered rate L. FA 22G no s/s infiltration. Ramirez catheter draining to gravity with sediments. Pt repositioned with pillow support. Sitter at bedside. Bed low, locked, siderails up x4. To endorse to Am nurse.
--- NOTE | 2020-02-26 06:17 | NUR ---
CONSULTATION PAGED/CALLED Reason for Consultation: agitation Person Who was Notified: dr. lopes Consulting Physician: dr. lopes Insulation Board Calender Operator Specialty: Ordering Physician: shira
[2020-02-26 06:44] LABS: BASOPHILS % (AUTO) 0.5 % (0.0-2.0); EOSINOPHILS # (AUTO) 0.3 K/uL (0.0-0.4); EOSINOPHILS % (AUTO) 3.6 % (0.0-4.0); HEMATOCRIT 28.1 % (36-48); HEMOGLOBIN 9.2 g/dL (12.0-16.0); LYMPHOCYTES % (AUTO) 21.8 % (20.5-51.5); MEAN CORPUSCULAR HEMOGLOBIN 27 pg (27-31); MEAN CORPUSCULAR HGB CONC 33 % (32-36); MEAN CORPUSCULAR VOLUME 82 fL (79.0-98.0); MONOCYTES # (AUTO) 0.7 K/uL (0.0-1.0); MONOCYTES % (AUTO) 7.7 % (1.7-9.3); NEUTROPHILS # (AUTO) 6.2 K/uL (1.8-7.7); NEUTROPHILS % (AUTO) 66.4 % (40.0-70.0); PLATELET COUNT (AUTO) 212 K/uL (130-430); RED BLOOD CELL COUNT(AUTO) 3.44 MIL/uL (4.2-6.2); RED CELL DISTRIBUTION WIDTH 16.6 % (9.0-15.0); RETICULOCYTE COUNT 2.1 % (0.5-1.5); WHITE BLOOD COUNT (AUTO) 9.4 K/uL (4.8-10.8)
[2020-02-26] MEDS: LEVOTHYROXINE SODIUM 0.025 MG TABLET PO SCH (06:52)
[2020-02-26 06:54] LABS: ALANINE AMINOTRANSFERASE 39 U/L (12-78); ALBUMIN 2.8 g/dL (3.4-4.8); ANION GAP 7 (5-15); ASPARTATE AMINOTRANSFERASE 40 U/L (10-37); CALCIUM 8.7 mg/dL (8.4-11.0); CHLORIDE 110 mmol/L (98-107); CREATININE 1.86 mg/dL (0.55-1.30); GLUCOSE 95 mg/dL (70-99); POTASSIUM 3.7 mmol/L (3.5-5.1); SODIUM SERUM 143 mmol/L (136-145); TOTAL BILIRUBIN 0.8 mg/dL (0.0-1.0); UREA NITROGEN, BLOOD 39 mg/dL (8-21)
[2020-02-26 08:00] VITALS: BP_SYST 125
--- NOTE | 2020-02-26 08:00 | NUR ---
Patient A/Ox1; IV site intact and patent.. On 2 liters of oxygen, satting 94-98%.. No respiratory distress noted. Sitter at bedside, who is feeding breakfast to the patient at this time. Patient tolerated breakfast well.
[2020-02-26] MEDS: CYANOCOBALAMIN 1000 mCg TABLET PO SCH (08:20)
[2020-02-26] MEDS: CHOLECALCIFEROL (VITAMIN D3) 2,000 UNIT TABLET PO SCH (08:20)
[2020-02-26] MEDS: PANTOPRAZOLE SODIUM 40 MG/VIAL (PROTONIX) IVP SCH (08:23)
[2020-02-26] MEDS: ASPIRIN 81 MG TABLET(ECOTRIN) PO SCH (08:23)
[2020-02-26] MEDS: QUEtiapine FUMARATE 25 MG TABLET PO SCH ×2 (08:23→21:50)
[2020-02-26] MEDS: HEPARIN SODIUM,PORCINE 5,000 UNITS/ML VIAL SUBCUT SCH ×2 (08:24→22:04)
[2020-02-26] MEDS: INSULIN GLARGINE 100 UNITS/ML 10 ML VIAL SUBCUT SCH ×2 (08:30→22:07)
[2020-02-26] MEDS: METOPROLOL SUCCINATE 50 MG TAB.SR.24H (TOPROL XL) PO SCH (09:00)
--- NOTE | 2020-02-26 09:52 | NUR ---
Case mgt: Rec'd orders for dc planning for snf--will f/u with luma [facility]ance--per cm dc plan assessment, pt has been at [facility] for PT or son yesenia with [facility]. CAITLIN RN
--- NOTE | 2020-02-26 10:02 | NUR ---
Leather Sorter: assist in D/C WATCH ENGINE OPERATOR called pts. son, Goyo Velasquez, and shared with him WATCH ENGINE OPERATOR is assisting with his moms D/C planning. WATCH ENGINE OPERATOR asked if had a preference for pt. to go to [facility] (she has been there in the past) or [facility]. Son stated he does not have a preference, "Whatever is best for her, that is where she should go". WATCH ENGINE OPERATOR shared with him she just received word that Dr. Moreno has ordered for a pscy. eval. for pt. Son did say pt. was very confused last time she was here and that she actually told the nurses and doctors, "No you have the wrong patient. Your not here for me. " Son was very concerned. WATCH ENGINE OPERATOR told him she would add these concerns to her notes as well as share this info with her Rn. WATCH ENGINE OPERATOR will remain available as needed. Addendum: 02/26/20 at 1033 by Cheryl GUEVARA Leather Sorter: follow u WATCH ENGINE OPERATOR faxd packet to [facility]. [employer] stated [facility] is not in, noone is in today for admissions. She will look for WATCH ENGINE OPERATOR's fax and save for [facility] who will be in tomorrow. Fax confirmation was received. WATCH ENGINE OPERATOR spoke to Rn. Patel who stated pt. may only speak Faroese so he may not be able to reassure her re. d/c to snf or the upcoming psych consult. He will try to converse with her to sort it out. WATCH ENGINE OPERATOR asked if he can have the blue phone ready for the psyc. consult.
--- NOTE | 2020-02-26 10:09 | NUR ---
LATE ENTRY CONSULTATION PAGED/CALLED Reason for Consultation: [] UNSTEADY GAIT Person Who was Notified: [] TEXTED TO DR SANZ, ENVIRONMENTAL RESEARCH SCIENTIST FOR DR Magdalene DE LOS SANTOS Consulting Physician: [] Magdalene WESLEY Petal Shaper Hand Specialty: [] NEURO Ordering Physician: [] DR RICHARDS
[2020-02-26 12:00] VITALS: BP_SYST 175
--- NOTE | 2020-02-26 13:00 | NUR ---
Patient is fed lunch tolerated without distress.
[2020-02-26] MEDS: INSULIN REGULAR, HUMAN 100 UNITS/ML, 10 ML VIAL (humuLIN R) SUBCUT PRN ×3 (13:11→22:08)
[2020-02-26] MEDS: DIPHENHYDRAMINE INJ 50 MG/ML VIAL IVP PRN ×2 (15:12→21:50)
[2020-02-26] MEDS ORDERED: NEPHROVITE, (FOLIC ACID/VITAMIN B COMP W-C 1 TAB) PO ONE (15:15)
--- NOTE | 2020-02-26 15:18 | NUR ---
Patient is becoming restless. Dr. Hamm is at bedside, and he is made aware. Orders are given.
[2020-02-26] MEDS ORDERED: QUEtiapine FUMARATE 25 MG TABLET PO ONE (15:45)
[2020-02-26] MEDS: NACL 0.9% 1,000 ML IV SCH (15:51)
[2020-02-26 16:10] VITALS: BP_SYST 156
--- NOTE | 2020-02-26 17:30 | NUR ---
patient is fed dinner. Tolerating without distress. RI is given for blood sugar of 363 according to the sliding scale.
[2020-02-26] MEDS: SOD FERRIC GLUC COMPLEX/SUC 125 MG in NS 100 ML IV SCH (18:00)
[2020-02-26 20:05] VITALS: BP_SYST 160
--- NOTE | 2020-02-26 20:05 | NUR ---
Opening notes Pt alert, awake, confused, restless. No s/s distress noted. O2 sat 95% on room air. IVF infusing at ordered rate R shoulder 22G no s/s infiltration. Ramirez catheter draining to gravity secured with yellow/orange urine. Sitter at bedside. Safety maintained. Bed low, locked, siderails up, alarm on. To monitor.
[2020-02-26] MEDS: AZITHROMYCIN 500 MG in NS 250 ML IV SCH (21:48)
[2020-02-26] MEDS: ATORVASTATIN 20 MG TABLET PO SCH (21:50)
--- NOTE | 2020-02-26 21:50 | NUR ---
Med pass Pt awake, restless, meds passed w/ applesauce. Aspiration precaution in place. Pt tolerated well. Benadryl 25mg IVP given as needed. Sitter at bedside. To monitor.
--- NOTE | 2020-02-26 22:08 | NUR ---
Blood sugar Blood sugar checked 467, paged Dr. Moreno. Awaiting callback.
--- NOTE | 2020-02-26 22:50 | NUR ---
HIGH ALERT NOTE: Called Dr. Moreno back at [phone] identified within the medical roster to verify physician authenticity re Regular insulin 6 units x1 now order.
[2020-02-26] MEDS ORDERED: INSULIN REGULAR, HUMAN 100 UNITS/ML, 10 ML VIAL SUBCUT ONE (23:00)
--- NOTE | 2020-02-27 | NUR ---
Rounds/pericare Pt awake, no s/s distress noted. VSS, pt incontinent of BM, pericare provided with HORSE DOCTOR assist. Pt repositioned. Sitter at bed side. To monitor.
[2020-02-27 00:08] VITALS: BP_SYST 143
[2020-02-27] MEDS: NACL 0.9% 1,000 ML IV SCH ×2 (01:57→16:39)
--- NOTE | 2020-02-27 04:20 | NUR ---
Rounds Pt asleep, easily awakens, incontinent of soft BM. Pericare provided. To monitor.
[2020-02-27 06:21] LABS: BASOPHILS % (AUTO) 0.6 % (0.0-2.0); EOSINOPHILS # (AUTO) 0.3 K/uL (0.0-0.4); EOSINOPHILS % (AUTO) 4.8 % (0.0-4.0); HEMATOCRIT 26.6 % (36-48); HEMOGLOBIN 8.7 g/dL (12.0-16.0); LYMPHOCYTES # (AUTO) 1.2 K/uL (1.0-5.5); LYMPHOCYTES % (AUTO) 20.1 % (20.5-51.5); MEAN CORPUSCULAR HEMOGLOBIN 27 pg (27-31); MEAN CORPUSCULAR HGB CONC 33 % (32-36); MEAN CORPUSCULAR VOLUME 82 fL (79.0-98.0); MONOCYTES # (AUTO) 0.4 K/uL (0.0-1.0); MONOCYTES % (AUTO) 7.6 % (1.7-9.3); NEUTROPHILS # (AUTO) 3.9 K/uL (1.8-7.7); NEUTROPHILS % (AUTO) 66.9 % (40.0-70.0); PLATELET COUNT (AUTO) 167 K/uL (130-430); RED BLOOD CELL COUNT(AUTO) 3.25 MIL/uL (4.2-6.2); RED CELL DISTRIBUTION WIDTH 16.3 % (9.0-15.0); WHITE BLOOD COUNT (AUTO) 5.8 K/uL (4.8-10.8)
[2020-02-27] MEDS: LEVOTHYROXINE SODIUM 0.025 MG TABLET PO SCH (06:35)
[2020-02-27] MEDS: traMADol HCL HCL 50 MG TABLET (ULTRAM) PO SCH ×3 (06:35→11:39)
[2020-02-27] MEDS: PIPERACILLIN/TAZO 2.25G/DEX-IS 50 ML IV SCH ×4 (06:35→23:38)
--- NOTE | 2020-02-27 06:37 | NUR ---
Closing notes Pt alert, awake, confused, restless. No s/s distress noted. BS checked 73, schedule Lantus administered. Pt drank orange juice, aspiration precaution maintained. IVF infusing at ordered rate R shoulder 22G no s/s infiltration. Ramirez catheter draining to gravity secured with yellow/orange urine. Pt incontinent of BM, pericare provided w/ HHA assist. Sitter at bedside. Safety maintained. Bed low, locked, siderails up, alarm on. To endorse to AM nurse.
[2020-02-27 06:43] LABS: ANION GAP 5 (5-15); CALCIUM 8.6 mg/dL (8.4-11.0); CHLORIDE 102 mmol/L (98-107); GLUCOSE 81 mg/dL (70-99); POTASSIUM 3.4 mmol/L (3.5-5.1); SODIUM SERUM 137 mmol/L (136-145); UREA NITROGEN, BLOOD 28 mg/dL (8-21)
[2020-02-27] MEDS: INSULIN GLARGINE 100 UNITS/ML 10 ML VIAL SUBCUT SCH ×2 (06:43→17:08)
[2020-02-27] MEDS: DIPHENHYDRAMINE INJ 50 MG/ML VIAL IVP PRN ×2 (06:48→12:48)
[2020-02-27 07:22] VITALS: BP_SYST 130
--- NOTE | 2020-02-27 08:00 | NUR ---
Initial notes In bed awake, confused. keeps moving in bed. No acute distress noted. Sitter at bedside. On room air at this time. IVF infusing well. Will continue to monitor.
--- NOTE | 2020-02-27 09:00 | NUR ---
Ct- Unable to do CT head at this time. Pt keeps moving and does not follow commands.
[2020-02-27] MEDS: CHOLECALCIFEROL (VITAMIN D3) 2,000 UNIT TABLET PO SCH (09:16)
[2020-02-27] MEDS: CYANOCOBALAMIN 1000 mCg TABLET PO SCH (09:16)
[2020-02-27] MEDS: METOPROLOL SUCCINATE 50 MG TAB.SR.24H (TOPROL XL) PO SCH (09:17)
[2020-02-27] MEDS: NEPHROVITE, (FOLIC ACID/VITAMIN B COMP W-C 1 TAB) PO SCH (09:17)
[2020-02-27] MEDS: ASPIRIN 81 MG TABLET(ECOTRIN) PO SCH (09:17)
[2020-02-27] MEDS: QUEtiapine FUMARATE 25 MG TABLET PO SCH ×3 (09:17→20:50)
[2020-02-27] MEDS: PANTOPRAZOLE SODIUM 40 MG/VIAL (PROTONIX) IVP SCH (09:39)
[2020-02-27] MEDS: KCL 20 mEq in 100 mL (PREMIX) 100 ML IV SCH ×2 (09:39→12:47)
[2020-02-27] MEDS: HEPARIN SODIUM,PORCINE 5,000 UNITS/ML VIAL SUBCUT SCH (09:41)
--- NOTE | 2020-02-27 10:10 | NUR ---
Discharge Planning: DCP followed up with Bry at [facility] patient accepted to Rm 10 upon discharge.
--- NOTE | 2020-02-27 11:03 | NUR ---
SON YAZMIN AGREED FOR FLU SHOT. PATIENT IS CONFUSED, PER ISABEL FROM [facility], PATIENT NEVER HAD FLU SHOT THIS FLU SEASON. SPOKE TO YAZMIN SON OF PATIENT AGREED TO GIVE FLU SHOT TO PATIENT, FLU SCREENING DONE, DESTINY PRIMARY NURSE WITNESSED THAT SON AGREED FOR FLU SHOT.
[2020-02-27] MEDS ORDERED: FLU VACC QS2020-21(65UP)/PF 0.7 ML/SYRINGE I.M. PRN (11:15)
[2020-02-27 11:24] VITALS: BP_SYST 147
[2020-02-27] MEDS: INSULIN REGULAR, HUMAN 100 UNITS/ML, 10 ML VIAL (humuLIN R) SUBCUT PRN ×2 (11:47→17:09)
--- NOTE | 2020-02-27 12:00 | NUR ---
Notes Eating lunch, feeding by the sitter. patient has good appetite and eat all her foods.
--- NOTE | 2020-02-27 15:04 | NUR ---
CT scan- Patient is drowsy at this time. called CT scan to try to do ct head,
--- NOTE | 2020-02-27 16:00 | NUR ---
CT- they bring patient to CT scan but still unsuccessful. patient still keeps moving even though she is drowsy pr tech.
[2020-02-27 16:53] VITALS: BP_SYST 146
[2020-02-27] MEDS: SOD FERRIC GLUC COMPLEX/SUC 125 MG in NS 100 ML IV SCH (17:05)
--- NOTE | 2020-02-27 17:16 | NUR ---
rounds DR. Moreno here and made aware that CT head was not done.
[2020-02-27] MEDS ORDERED: traMADol HCL HCL 50 MG TABLET (ULTRAM) PO PRN (17:30)
--- NOTE | 2020-02-27 19:05 | NUR ---
OPENING NOTES Received patient resting, eyes closed. No signs of acute respiratory distress noted. IV site patent, dressings c/d/i, IVF running. Ramirez catheter in place, no kinks, no loops, bag not touching the floor. Call light within reach, bed alarm on, bed at lowest position, sitter at bedside. Received report that CT head without contrast was unsuccessful during the day because the patient was restless. Will continue to monitor.
[2020-02-27 20:00] VITALS: BP_SYST 142
[2020-02-27] MEDS: ATORVASTATIN 20 MG TABLET PO SCH (20:50)
--- NOTE | 2020-02-27 21:11 | NUR ---
PO medications provided crushed, patient tolerated well. Easily awoken to take medication. Will continue to monitor.
--- NOTE | 2020-02-27 23:50 | NUR ---
Patient is resting, self weldno. No signs of acute respiratory distress at this time. Will continue to monitor.
[2020-02-28 00:21] VITALS: BP_SYST 150
--- NOTE | 2020-02-28 02:02 | NUR ---
Patient is resting, rise and fall of chest and snoring noted. No respiratory distress noted at this time. Will continue to monitor.
--- NOTE | 2020-02-28 04:38 | NUR ---
Patient is asleep, rise and fall of chest noted. No respiratory distress noted. will continue to monitor.
[2020-02-28] MEDS: PIPERACILLIN/TAZO 2.25G/DEX-IS 50 ML IV SCH ×3 (05:51→17:44)
[2020-02-28] MEDS: LEVOTHYROXINE SODIUM 0.025 MG TABLET PO SCH (05:51)
[2020-02-28] MEDS: INSULIN GLARGINE 100 UNITS/ML 10 ML VIAL SUBCUT SCH ×2 (06:05→16:33)
[2020-02-28 06:35] LABS: BASOPHILS % (AUTO) 0.7 % (0.0-2.0); EOSINOPHILS # (AUTO) 0.3 K/uL (0.0-0.4); EOSINOPHILS % (AUTO) 5.6 % (0.0-4.0); HEMATOCRIT 28.8 % (36-48); HEMOGLOBIN 9.5 g/dL (12.0-16.0); LYMPHOCYTES # (AUTO) 1.1 K/uL (1.0-5.5); MEAN CORPUSCULAR HEMOGLOBIN 27 pg (27-31); MEAN CORPUSCULAR HGB CONC 33 % (32-36); MEAN CORPUSCULAR VOLUME 82 fL (79.0-98.0); MONOCYTES # (AUTO) 0.5 K/uL (0.0-1.0); MONOCYTES % (AUTO) 8.5 % (1.7-9.3); NEUTROPHILS % (AUTO) 67.2 % (40.0-70.0); PLATELET COUNT (AUTO) 192 K/uL (130-430); RED BLOOD CELL COUNT(AUTO) 3.52 MIL/uL (4.2-6.2)
--- NOTE | 2020-02-28 07:00 | NUR ---
CLOSING NOTES Patient is resting, 2L NC, no respiratory distress noted. IV site patent, dressings c/d/i, IVF running. Ramirez catheter intact, draining by gravity, no kinks, no loops, bag not touching the floor. Call light within reach, bed alarm zelalem, bed at lowest position. Sitter at bedside, all needs met throughout shift. Will endorse care to oncoming shift.
[2020-02-28 07:28] LABS: ALANINE AMINOTRANSFERASE 26 U/L (12-78); ALBUMIN 2.7 g/dL (3.4-4.8); ANION GAP 7 (5-15); ASPARTATE AMINOTRANSFERASE 32 U/L (10-37); CALCIUM 8.6 mg/dL (8.4-11.0); CHLORIDE 106 mmol/L (98-107); CREATININE 1.64 mg/dL (0.55-1.30); GLUCOSE 189 mg/dL (70-99); POTASSIUM 4.4 mmol/L (3.5-5.1); SODIUM SERUM 140 mmol/L (136-145); TOTAL BILIRUBIN 0.9 mg/dL (0.0-1.0); UREA NITROGEN, BLOOD 27 mg/dL (8-21)
[2020-02-28] MEDS: CHOLECALCIFEROL (VITAMIN D3) 2,000 UNIT TABLET PO SCH (09:44)
[2020-02-28] MEDS: CYANOCOBALAMIN 1000 mCg TABLET PO SCH (09:44)
[2020-02-28] MEDS: NEPHROVITE, (FOLIC ACID/VITAMIN B COMP W-C 1 TAB) PO SCH (09:45)
[2020-02-28] MEDS: METOPROLOL SUCCINATE 50 MG TAB.SR.24H (TOPROL XL) PO SCH (09:45)
[2020-02-28] MEDS: QUEtiapine FUMARATE 25 MG TABLET PO SCH ×3 (09:45→20:16)
[2020-02-28] MEDS: ASPIRIN 81 MG TABLET(ECOTRIN) PO SCH (09:45)
[2020-02-28] MEDS: PANTOPRAZOLE SODIUM 40 MG/VIAL (PROTONIX) IVP SCH (09:52)
[2020-02-28 10:00] VITALS: BP_SYST 146
--- NOTE | 2020-02-28 10:00 | NUR ---
Note Pt just woke up at this time. Sitting up to eat her breakfast. No SOB/resp distress or pain/discomfort noted at this time. Pt has her O2 on at 2L/nc. IV in RU chest wall intact and patent infusing IVF's well. Pt has bedside sitter all shift. Pt was assisted in eating her breakfast. No needs noted at this time. Pt has Ramirez catheter intact and draining well at this time. Call light within reach.
[2020-02-28] MEDS: NACL 0.9% 1,000 ML IV SCH (11:17)
--- NOTE | 2020-02-28 11:30 | NUR ---
Note Dr Moreno on the floor to assess pt and write orders at this time. No needs noted at this time. Call light within reach.
[2020-02-28 11:44] VITALS: BP_SYST 135
--- NOTE | 2020-02-28 11:50 | NUR ---
SS NOTES/GERIPSYCH: DELIVERY MAN received an order to d/c pt to [facility]. DELIVERY MAN spoke with Ayla PACK that a 5150 is needed to transfer patient to psych. Ayla PACK will page Psych .
[2020-02-28] MEDS: INSULIN REGULAR, HUMAN 100 UNITS/ML, 10 ML VIAL (humuLIN R) SUBCUT PRN ×4 (12:03→21:09)
--- NOTE | 2020-02-28 13:50 | NUR ---
Note Pt resting in bed. No needs noted at this time. Waiting for call back from Psych MD at this time for pt transfer to [facility].
[2020-02-28 15:35] VITALS: BP_SYST 136
[2020-02-28] MEDS: SOD FERRIC GLUC COMPLEX/SUC 125 MG in NS 100 ML IV SCH (16:41)
--- NOTE | 2020-02-28 16:45 | NUR ---
Note Called Dr Moreno for pt's blood sugar of 522. Waiting for call back.
--- NOTE | 2020-02-28 17:58 | NUR ---
Note Called Dr Moreno for blood sugar - waiting for call back.
--- NOTE | 2020-02-28 18:09 | NUR ---
HIGH ALERT NOTE: Called Dr. Moreno back at identified within the medical roster to verify physician authenticity. For one time dose of Regular Insulin 6 units for blood sugar of 522
[2020-02-28] MEDS ORDERED: INSULIN REGULAR, HUMAN 100 UNITS/ML, 10 ML VIAL SUBCUT ONE ×2 (18:15→21:15)
--- NOTE | 2020-02-28 19:00 | NUR ---
Note Pt resting in bed with sitter at bedside at this time. IV in right upper arm intact and patent infusing IVF's well. Pt has been without O2 on most of shift. No SOB/resp distress or pain/discomfort noted at this time. Pt was maintained with safety precautions all shift. Pt was checked on q1' and PRN all shift for needs and care. Ramirez catheter intact and draining well. No needs noted. Call light within reach.
--- NOTE | 2020-02-28 19:10 | NUR ---
OPENING NOTE RECEIVE REPORT FROM MORNING SHIFT SIRENA VILLALTA. PATIENT RESTING IN BED. AOX1. FOLLOW ON SIMPLE COMMAND. SITTER AT BEDSIDE. NO SIGNS OF RESPIRATORY DISTRESS AND DISCOMFORT NOTED. BREATHING EVEN AND UNLABORED. ON ROOM AIR, TOLERATING WELL. O2 SATURATION OF 95%. VITAL SIGNS TAKEN AND WILL BE RECORDED. IVF INFUSING WELL. CARRILLO CATHETER DRAINING BY GRAVITY. BED LOCKED AND IN LOWEST POSITION. BED ALARM ON. SAFETY AND ASPIRATION PRECAUTION IN PLACE. WILL CONTINUE TO MONITOR PATIENT.
[2020-02-28 20:04] VITALS: BP_SYST 154
[2020-02-28] MEDS: ATORVASTATIN 20 MG TABLET PO SCH (20:16)
--- NOTE | 2020-02-28 20:37 | NUR ---
Paged Dr. Moreno s/w Lulu
--- NOTE | 2020-02-28 20:55 | NUR ---
HIGH ALERT NOTE: Called Dr. Josh MD gave high alert medication. Call back at [phone]. Identified within the medical roster to verify physician authenticity.
--- NOTE | 2020-02-28 20:55 | NUR ---
SPOKE WITH DR. BRICE RAO MADE AWARE OF BS OF 460. AWARE THAT 10 UNITS OF REGULAR INSULIN WAS GIVEN PER ORDER. GAVE ORDER OF ADDITIONAL 6UNITS OF REGULAR INSULIN FOR COVERAGE.
[2020-02-28] MEDS ORDERED: INSULIN REGULAR, HUMAN 100 UNITS/ML, 10 ML VIAL (humuLIN R) SUBCUT ONE (21:00)
--- NOTE | 2020-02-28 21:03 | NUR ---
MED PASS/ BS 460 DUE MEDICATION GIVEN AT THIS TIME, PATIENT TOLERATED WELL. BS OF 460. MD AWARE. PATIENT WAS EDUCATED ON MEDICATION THAT WAS GIVEN FOR ITS PURPOSE, SIDE EFFECT AND BENEFITS. PATIENT UNABLE TO VERBALIZED UNDERSTANDING. PATIENT IS CONFUSED. SITTER AT BEDSIDE. IVF INFUSING WELL. SAFETY AND ASPIRATION PRECAUTION IN PLACE. WILL CONTINUE TO MONITOR PATIENT
--- NOTE | 2020-02-28 23:30 | NUR ---
RN ROUNDS PATIENT ASLEEP AT THIS TIME. SITTER AT BEDSIDE. NO SIGNS OF RESPIRATORY DISTRESS AND DISCOMFORT NOTED. BREATHING EVEN AND UNLABORED. ON ROOM AIR TOLERATING WELL, O2 SATURATION OF 95%. IVF INFUSING WELL. CARRILLO CATHETER DRAINING WELL. SAFETY PRECAUTIONS IN PLACE. WILL CONTINUE TO MONITOR PATIENT
[2020-02-29] VITALS (7 sets, daily range): BP systolic 146–158
[2020-02-29] MEDS: PIPERACILLIN/TAZO 2.25G/DEX-IS 50 ML IV SCH ×5 (00:07→23:40)
--- NOTE | 2020-02-29 02:36 | NUR ---
RN ROUNDS PATIENT ASLEEP AT THIS TIME. SITTER AT BEDSIDE. NO SIGNS OF RESPIRATORY DISTRESS AND DISCOMFORT NOTED. BREATHING EVEN AND UNLABORED. ON 2L OF OXYGEN VIA NASAL CANULA, 02 SATURATION OF 95%. IVF INFUSING WELL. CALL LIGHT WITHIN REACH. SAFETY PRECAUTIONS IN PLACE. WILL CONTINUE TO MONITOR PATIENT.
[2020-02-29] MEDS: NACL 0.9% 1,000 ML IV SCH ×2 (04:01→21:38)
--- NOTE | 2020-02-29 04:30 | NUR ---
TAYLOR CARE TAYLOR CARE DONE WITH HELP OF NURSE QUALITY. PATIENT TOLERATED WELL. PATIENT ABLE SELF TURN. PATIENT HAS NO SIGNS OF RESPIRATORY DISTRESS AND DISCOMFORT NOTED. BREATHING EVEN AND UNLABORED. ON 2L OF OXYGEN TOLERATING WELL. IVF INFUSING WELL. CALL LIGHT WITHIN REACH. SAFETY PRECAUTIONS IN PLACE. WILL CONTINUE TO MONITOR PATIENT.
[2020-02-29] MEDS: INSULIN GLARGINE 100 UNITS/ML 10 ML VIAL SUBCUT SCH ×2 (06:08→17:18)
[2020-02-29] MEDS: LEVOTHYROXINE SODIUM 0.025 MG TABLET PO SCH (06:09)
[2020-02-29 06:24] LABS: BASOPHILS % (AUTO) 0.6 % (0.0-2.0); EOSINOPHILS # (AUTO) 0.3 K/uL (0.0-0.4); EOSINOPHILS % (AUTO) 3.8 % (0.0-4.0); HEMATOCRIT 28.8 % (36-48); HEMOGLOBIN 9.3 g/dL (12.0-16.0); LYMPHOCYTES # (AUTO) 0.9 K/uL (1.0-5.5); LYMPHOCYTES % (AUTO) 13.3 % (20.5-51.5); MEAN CORPUSCULAR HEMOGLOBIN 27 pg (27-31); MEAN CORPUSCULAR HGB CONC 32 % (32-36); MEAN CORPUSCULAR VOLUME 82 fL (79.0-98.0); MONOCYTES # (AUTO) 0.6 K/uL (0.0-1.0); MONOCYTES % (AUTO) 8.7 % (1.7-9.3); NEUTROPHILS # (AUTO) 4.8 K/uL (1.8-7.7); NEUTROPHILS % (AUTO) 73.6 % (40.0-70.0); PLATELET COUNT (AUTO) 186 K/uL (130-430); RED BLOOD CELL COUNT(AUTO) 3.52 MIL/uL (4.2-6.2); RED CELL DISTRIBUTION WIDTH 16.5 % (9.0-15.0); WHITE BLOOD COUNT (AUTO) 6.5 K/uL (4.8-10.8)
--- NOTE | 2020-02-29 06:39 | NUR ---
CLOSING NOTE/ BS 143 PATIENT ASLEEP AT THIS TIME. SITTER AT BED SIDE. NO SIGNS OF RESPIRATORY DISTRESS AND DISCOMFORT NOTED. BREATHING EVEN AND UNLABORED. ON ROOM AIR, TOLERATING WELL. BS CHECKED 143, NO COVERAGE NEEDED AT THIS TIME. IVF INFUSING WELL. CALL LIGHT WITHIN REACH. BED LOCKED AND IN LOWEST POSITION. BED ALARM ON. SAFETY PRECAUTIONS IN PLACE. ROUNDING Q1 DONE WELL. ALL NEEDS MET THROUGHOUT THE SHIFT. WILL CONTINUE TO MONITOR PATIENT UNTIL ENDORSE TO ONCOMING SHIFT NURSE FOR CONTINUITY OF CARE.
[2020-02-29 07:07] LABS: ALANINE AMINOTRANSFERASE 28 U/L (12-78); ALBUMIN 2.6 g/dL (3.4-4.8); ANION GAP 8 (5-15); ASPARTATE AMINOTRANSFERASE 28 U/L (10-37); CALCIUM 8.4 mg/dL (8.4-11.0); CHLORIDE 105 mmol/L (98-107); CREATININE 1.79 mg/dL (0.55-1.30); GLUCOSE 157 mg/dL (70-99); POTASSIUM 4.2 mmol/L (3.5-5.1); SODIUM SERUM 140 mmol/L (136-145); TOTAL BILIRUBIN 0.8 mg/dL (0.0-1.0); UREA NITROGEN, BLOOD 31 mg/dL (8-21)
--- NOTE | 2020-02-29 08:20 | NUR ---
PATIENTS IS LOCX2. PATIENT IS BEING COOPERATIVE AND TAKING ALL HER MEDICATIONS. THERE IS LANGUAGE BARRIER BUT BESIDES THAT PATIENT SEEMS COMFORTABLE.
--- NOTE | 2020-02-29 08:24 | NUR ---
SS NOTES: ISMAEL advised Joel PACK to page corinna RAO so a transfer can be facilitated if appropriate for 5150. Addendum: 02/29/20 at [address] Hamm has placed pt on a 5150 eff 02/28 @0800. [facility] (p:[phone], f:[phone]). BERNARD confirmed that clinicals were received. SS will f/u. Addendum: 02/29/20 at 1425 by Siobhan GUEVARA ISMAEL received a call back from Rebecca from [facility] (p:[phone]) who stated clinically the patient is accepted, but pending bed availability. SS will continue to follow up with the [facility] and [facility]. Addendum: 02/29/20 at 1454 by Siobhan GUEVARA TRANSFER INFORMATION: Pt is accepting at [facility], Room 54/B Medical MD: Dr. Chau Psychiatric MD: Dr. Alexandra Report: [phone] Will-call transport arranged with [facility]. Packet with chart. RN notified. Addendum: 02/29/20 at 1532 by Siobhan GUEVARA ISMAEL phoned luma Nance @ [phone]. Goyo is refusing for his mother to be transferred to [facility] until he speaks to the doctor directly. Goyo believes this is all a misunderstanding and that it could be due to the language (pt is Portugese speaker only). Bedside RN and Lexi PACK notified.
[2020-02-29] MEDS: PANTOPRAZOLE SODIUM 40 MG/VIAL (PROTONIX) IVP SCH (09:08)
[2020-02-29] MEDS: NEPHROVITE, (FOLIC ACID/VITAMIN B COMP W-C 1 TAB) PO SCH (09:18)
[2020-02-29] MEDS: METOPROLOL SUCCINATE 50 MG TAB.SR.24H (TOPROL XL) PO SCH (09:23)
[2020-02-29] MEDS: ASPIRIN 81 MG TABLET(ECOTRIN) PO SCH (09:23)
[2020-02-29] MEDS: CHOLECALCIFEROL (VITAMIN D3) 2,000 UNIT TABLET PO SCH (09:24)
[2020-02-29] MEDS: CYANOCOBALAMIN 1000 mCg TABLET PO SCH (09:25)
[2020-02-29] MEDS: QUEtiapine FUMARATE 25 MG TABLET PO SCH ×3 (09:27→21:48)
[2020-02-29] MEDS: INSULIN REGULAR, HUMAN 100 UNITS/ML, 10 ML VIAL (humuLIN R) SUBCUT PRN ×2 (12:19→17:18)
--- NOTE | 2020-02-29 12:29 | NUR ---
Nutrition F/U Admitting Diagnosis: Acute respiratory failure, pneumonia Medical History Comment: Pertinent medical information per MD notes: DM2, HTN, HLD, hypothyroidism, dementia, possible pneumonia, renal failure w/ dehydration COVID-19 negative 02/22 per EMR Subjective Information Pt seen in bed, restless, eyes opened but not alert. Homa MA at bedside as sitter reported that pt did not eat at all this morning. Nursing staff reported that it was reported to her that pt has not been eating since pt was started on Haldol. Per web worker notes, pt is placed on 5150 today and is a/w transfer to [facility]. Nephrology noted that renal function is improving and ultrasound does not show any acute abnormalities. Pt is not yet meeting adequate nutrition and w/ elevated BG lab values. Current Diet Order/Nutrition Support: Mechanical Soft, Puree since 02/23 Pertinent Medications: Insulin glargine/regular, vit D-3, synthroid, Nephrovite Seroquel, Haldol, lipitor Pertinent Labs 02/28 BG 157H, POC BG 390H, BUN 31H, CRE 1.79H Skin Integrity Comment: Tye scale 15, no PI reported Current % PO poor per sitter NEW Estimated Energy Expenditure (kcals/day) 5320-4932 kcal/day (30-35 kcal/kg IBW for sepsis) NEW Estimated Protein Required (g/day) 55-65 gm/day (1-1.2 gm/kg IBW for Renal dz predialysis and sepsis) Estimated Fluid Required (l/day) Per MD d/t renal failure w/ dehydration Problem/Etiology/Signs/Symptoms Altered nutrition-related lab values related to endocrine dysfunction AEB uncontrolled DM2, elevated BG levels. (*ongoing) Expected Outcomes/Goals - Monitor appetite and PO intakes w/ goal of pt meeting at least 75% of estimated nutritional needs, labs trending WNL, normal GI function, and skin integrity/wt maintenance. Dietitian Recommendations * Recommend add CCHO diet to current pureed diet. * Recommend Glucerna TID. * Encourage fluid and PO intake Follow Up Mod Risk: F/U in 3-5 days
--- NOTE | 2020-02-29 12:38 | NUR ---
Dietitian Recommendations * Recommend add CCHO diet to current pureed diet. * Recommend Glucerna TID. * Encourage fluid and PO intake Please see Nutrition F/U note for details. MARYSOL, RD
--- NOTE | 2020-02-29 14:45 | NUR ---
SPOKE TO SS THEY FOUND A BED IN [facility]. NEED FC DC ORDER FOR PATIENT TO BE DC TO [facility].
[2020-02-29] MEDS: SOD FERRIC GLUC COMPLEX/SUC 125 MG in NS 100 ML IV SCH (17:07)
[2020-02-29] MEDS ORDERED: INSULIN REGULAR, HUMAN 100 UNITS/ML, 10 ML VIAL (humuLIN R) SUBCUT PRN (17:30)
--- NOTE | 2020-02-29 19:35 | NUR ---
OPENING NOTE RECEIVED SBAR REPORT FROM OFF COMING RN FOR CONTINUITY OF CARE. PT RESTING IN BED, NO S/S OF ACUTE DISTRESS NOTED. PT ON RA. NS INFUSING @ 60 ML/HR. CARRILLO CATHETER IN PLACE. WILL CONTINUE TO MONITOR.
--- NOTE | 2020-02-29 21:30 | NUR ---
PT RESTING IN BED, ALERT TO SELF. PT SPEAKS OCCITAN, COOPERATIVE AND ABLE TO FOLLOW SIMPLE COMMANDS. PT REMAINS ON RA. NS INFUSING @ 60 ML/HR. CARRILLO CATHETER IN PLACE AND DRAINING TO GRAVITY, CLEAR YELLOW URINE NOTED. PT HAD SMALL BM, PROVIDED TAYLOR CARE (CLEANSED AREA WITH SOAP AND WATER, PATTED DRY AND APPLIED BARRIER CREAM TO AREA), CARRILLO CARE AND TURNED AND REPOSITIONED. BED LOCKED AND IN LOWEST POSITION. WILL CONTINUE TO MONITOR AND ASSESS.
[2020-02-29] MEDS: ATORVASTATIN 20 MG TABLET PO SCH (21:38)
[2020-03-01 00:45] VITALS: BP_SYST 153
[2020-03-01] MEDS: DIPHENHYDRAMINE INJ 50 MG/ML VIAL IVP PRN (01:04)
--- NOTE | 2020-03-01 01:10 | NUR ---
PT RESTLESS IN BED AND ATTEMPTING TO GET UP, PROVIDED REORIENTATION AND REDIRECTION. BED CONTINUES TO BE LOCKED IN LOWEST POSITION. ADMINISTERED PRN BENADRYL PER EMAR. WILL CONTINUE TO MONITOR AND ASSESS.
--- NOTE | 2020-03-01 05:00 | NUR ---
PT RESTING IN BED AND SLEEPING. PT REMAINS ON RA. NS CONTINUES TO INFUSE. CARRILLO CATHETER IN PLACE AND DRAINING TO GRAVITY, CLEAR YELLOW URINE NOTED. BED LOCKED AND IN LOWEST POSITION. SITTER CONTINUES TOP BE IN PLACE. WILL CONTINUE TO MONITOR AND ASSESS.
[2020-03-01] MEDS: PIPERACILLIN/TAZO 2.25G/DEX-IS 50 ML IV SCH (05:52)
[2020-03-01] MEDS: LEVOTHYROXINE SODIUM 0.025 MG TABLET PO SCH (05:53)
[2020-03-01] MEDS: INSULIN GLARGINE 100 UNITS/ML 10 ML VIAL SUBCUT SCH (05:57)
[2020-03-01 06:22] LABS: BASOPHILS % (AUTO) 0.6 % (0.0-2.0); EOSINOPHILS # (AUTO) 0.3 K/uL (0.0-0.4); EOSINOPHILS % (AUTO) 4.2 % (0.0-4.0); HEMATOCRIT 28.5 % (36-48); HEMOGLOBIN 9.4 g/dL (12.0-16.0); LYMPHOCYTES % (AUTO) 12.6 % (20.5-51.5); MEAN CORPUSCULAR HEMOGLOBIN 27 pg (27-31); MEAN CORPUSCULAR HGB CONC 33 % (32-36); MEAN CORPUSCULAR VOLUME 82 fL (79.0-98.0); MONOCYTES # (AUTO) 0.6 K/uL (0.0-1.0); MONOCYTES % (AUTO) 7.9 % (1.7-9.3); NEUTROPHILS % (AUTO) 74.7 % (40.0-70.0); PLATELET COUNT (AUTO) 190 K/uL (130-430); RED BLOOD CELL COUNT(AUTO) 3.49 MIL/uL (4.2-6.2); RED CELL DISTRIBUTION WIDTH 15.9 % (9.0-15.0); WHITE BLOOD COUNT (AUTO) 8.1 K/uL (4.8-10.8)
[2020-03-01 06:54] LABS: ALANINE AMINOTRANSFERASE 30 U/L (12-78); ALBUMIN 2.7 g/dL (3.4-4.8); ANION GAP 5 (5-15); ASPARTATE AMINOTRANSFERASE 25 U/L (10-37); CALCIUM 8.8 mg/dL (8.4-11.0); CHLORIDE 102 mmol/L (98-107); CREATININE 1.72 mg/dL (0.55-1.30); GLUCOSE 135 mg/dL (70-99); POTASSIUM 3.9 mmol/L (3.5-5.1); SODIUM SERUM 133 mmol/L (136-145); TOTAL BILIRUBIN 0.9 mg/dL (0.0-1.0); UREA NITROGEN, BLOOD 27 mg/dL (8-21)
--- NOTE | 2020-03-01 07:30 | NUR ---
CLOSING NOTE ENDORSED SBAR REPORT TO ONCOMING RN FOR CONTINUITY OF CARE. PT SLEEPING, NO S/S OF ACUTE DISTRESS NOTED. IVF INFUSING, CARRILLO CATHETER IN PLACE. SITTER AT BEDSIDE. BED LOCKED AND IN LOWEST POSITION.
--- NOTE | 2020-03-01 07:35 | NUR ---
Opening Note patient in bed resting, a/o x 2, reoriented patient to place and time, no signs of distress noted, respirations even and unlabored, safety measures put in place, bed locked bed at low position, fall and aspiration precautions put in place, will monitor patient for any changes.
--- NOTE | 2020-03-01 07:57 | NUR ---
Called patient's son Goyo Velasquez [phone] regarding his conversation with Dr. Moreno last night about coming into translate to the patient that she will be discharged from the hospital to [facility]. The son was unable to come last night, asked patient's son to come in this morning to speak with the patient, he verbalized understanding and will be coming in this morning [phone]. Addendum: 03/01/20 at 0840 by Lio Manning RN Called patient's son left voicemail, offered to Ipad communication to his mother, asked him to call nursing station when he receives the message. Addendum: 03/01/20 at 0902 by Lio Manning RN Spoke with patient's son, asked if he is having any COVID symptoms - he denies this. Informed him that he is able to come visit his mother in person for 20 minutes max, he verbalized understanding, and will be coming between [phone]. Addendum: 03/01/20 at 1130 by Lio Manning RN [phone] Patient's son visited the patient and explained and reassured her about the discharge today, according to the patient's son the patient is agreeable. Patient's son signed Transfer Acknowledgement/Consent.
[2020-03-01 08:10] VITALS: BP_SYST 149
--- NOTE | 2020-03-01 08:56 | NUR ---
Social Service Note/Geropsych placement Received a call from Anderson at [facility] asking why patient was not transferred yesterday. Explained the patient's son wished to speak to doctor (done last night) and patient prior to transfer. Son is due in to the hospital about 9:30 am. Will arrange transfer to [facility] after patient's son speaks to her. Addendum: 03/01/20 at 1024 by Evelia Swartz LCSW Patient's son has visited patient. Spoke with Lio PACK. Spoke with Anderson at [facility]. Transfer to be after 11 am. [facility] room 54B. Nurse to Nurse [phone] [facility] [phone], 11:30am. Updated packet with 5150 hold placed at nurses' station. Addendum: 03/01/20 at 1126 by [address] Swartz LCSW [address] Chau stated he would be the medical provider at [facility]. Notified Anderson. Dr Chau was already assigned.
[2020-03-01] MEDS: QUEtiapine FUMARATE 25 MG TABLET PO SCH (09:08)
[2020-03-01] MEDS: PANTOPRAZOLE SODIUM 40 MG/VIAL (PROTONIX) IVP SCH (09:08)
[2020-03-01] MEDS: ASPIRIN 81 MG TABLET(ECOTRIN) PO SCH (09:11)
[2020-03-01] MEDS: METOPROLOL SUCCINATE 50 MG TAB.SR.24H (TOPROL XL) PO SCH (09:11)
[2020-03-01] MEDS: NEPHROVITE, (FOLIC ACID/VITAMIN B COMP W-C 1 TAB) PO SCH (09:11)
[2020-03-01] MEDS: CHOLECALCIFEROL (VITAMIN D3) 2,000 UNIT TABLET PO SCH (09:12)
[2020-03-01] MEDS: CYANOCOBALAMIN 1000 mCg TABLET PO SCH (09:12)
--- NOTE | 2020-03-01 09:20 | NUR ---
RN Rounds/Medication patient in bed resting, administered medications ordered per MD, patient tolerated well, no other needs at this time, safety measures maintained, will monitor patient for any changes.
[2020-03-01 10:23] VITALS: BP_SYST 149
--- NOTE | 2020-03-01 11:00 | NUR ---
Ramirez catheter discontinue catheter tip intact, patient tolerated well.
--- NOTE | 2020-03-01 11:40 | NUR ---
PT TRANSFERRED Report given to Veroncia RN at 1119. Transfer packet with Transfer Orders and Medication Reconciliation form given to EMT with report. Exitcare provided. [facility] ID band removed, replaced with ID band with pt's name and . IV catheter removed, intact and dressing applied, no active bleeding. All belongings sent with patient. Patient left floor via gurney escorted by EMT in no distress.
== END 2020-03-01 11:40 | DRG 871 ==
LOC: SED 18:42 → STU 21:24 → SMU 02-25 17:05
PROVIDERS: ADMIT Internal Medicine; ATTEND Internal Medicine
DX: A41.89 Other specified sepsis (principal); J18.9 Pneumonia, unspecified organism; N17.0 Acute kidney failure with tubular necrosis; G93.41 Metabolic encephalopathy; J96.01 Acute respiratory failure with hypoxia; E87.1 Hypo-osmolality and hyponatremia; Y95 Nosocomial condition; D50.9 Iron deficiency anemia, unspecified; E03.9 Hypothyroidism, unspecified; E11.9 Type 2 diabetes mellitus without complications; E78.5 Hyperlipidemia, unspecified; Z20.828 Contact with and (suspected) exposure to other viral communicable diseases; E86.0 Dehydration; F03.90 Unspecified dementia, unspecified severity, without behavioral disturbance, psychotic disturbance, mood disturbance, and anxiety; F41.9 Anxiety disorder, unspecified; I11.0 Hypertensive heart disease with heart failure; I50.9 Heart failure, unspecified; J20.9 Acute bronchitis, unspecified; F32.9 Major depressive disorder, single episode, unspecified; M19.90 Unspecified osteoarthritis, unspecified site; Z79.899 Other long term (current) drug therapy
CPT/HCPCS: 36415; 36600; 71045; 76770; 78580-TC; 80048; 80053; 80061; 81000-TC; 81003; 82272; 82550-TC; 82553-TC; 82607; 82728; 82746; 82803-TC; 82962; 83036; 83540-TC; 83550-TC; 83605; 83615-TC; 83880; 84439; 84443-TC; 84484; 85025; 85044-TC; 85379; 85384-TC; 85610-TC; 85730-TC; 86140; 86886; 86900; 86901; 87040-TC; 87081; 87086; 93005; 93306; 93970; 94640; 94760; 96365; 96367; 97110-GP; 97116-GP; 97530-GP; 99285; A9540; C9113; G0378; J0456; J0696; J1100; J1200; J1630; J1644; J1815; J2543; J2916; J3480; J7030; J7042; J7050; J7060; U0003-CS

== ENCOUNTER 2020-03-15 16:17 | Inpatient (IN) | payer OTHER, MEDICAID, SELFPAY ==
[~2020-03-15] VITALS: Ht 162.6 cm; Wt 77.1 kg
[2020-03-15 16:17] VITALS: BP_SYST 105
[~2020-03-15 16:17] MED LIST changes: +FURO20TA4 PO; +HYDR-3917 PO; +INSU100I26 SQ; -INSU100V11 SQ; -METF-510 PO; +SSNOVOLOG SUBCUT
--- NOTE | 2020-03-15 16:17 | NUR ---
BROUGHT IN BY [facility] FROM [facility], PLACED IN BED #5 AND TRIAGED. REPORT GIVEN TO DREA
--- NOTE | 2020-03-15 16:18 | NUR ---
BIB BLS from [facility], sent by IMELDA Chau for abnormal labs. Patient to ER bed 05 for evaluation. Side rails up.
--- NOTE | 2020-03-15 16:20 | NUR ---
pt arrives from [facility] for elevated BUn 81, Cr 2.78. pt has hx of anxiety and depression. alarm security or surveillance monitor placed.
[2020-03-15] MEDS ORDERED: NACL 0.9% 1,000 ML IV ONE ×2 (16:30→16:45)
--- NOTE | 2020-03-15 16:30 | NUR ---
ER Dr. Flroes at bedside examining patient.
--- NOTE | 2020-03-15 16:40 | NUR ---
Covid swabs and MRSA swab collected and sent to the lab
--- NOTE | 2020-03-15 16:58 | NUR ---
# 22 gauge angiocath placed to rfa. Use of asceptic technique. Opsite placed over site. Blood return noted. Blood for lab drawn from site. Flushed with 10 cc of normal saline. No evidence of infiltration noted. Patient tolerated well.
--- NOTE | 2020-03-15 16:58 | NUR ---
Ns 1L infusing per MD order.
[2020-03-15 17:12] LABS: HEMATOCRIT 34.4 % (36-48); MEAN CORPUSCULAR HEMOGLOBIN 26 pg (27-31); MEAN CORPUSCULAR HGB CONC 32 % (32-36); MEAN CORPUSCULAR VOLUME 83 fL (79.0-98.0); PLATELET COUNT (AUTO) 329 K/uL (130-430); RED BLOOD CELL COUNT(AUTO) 4.15 MIL/uL (4.2-6.2); RED CELL DISTRIBUTION WIDTH 17.5 % (9.0-15.0); WHITE BLOOD COUNT (AUTO) 9.4 K/uL (4.8-10.8)
[2020-03-15] MEDS ORDERED: ATOR10TA68 PO (17:19)
[2020-03-15] MEDS ORDERED: ZOLP5TAB2 PO (17:36)
[2020-03-15] MEDS ORDERED: MULT-1089 PO (17:36)
[2020-03-15] MEDS ORDERED: INSU100V9 SQ (17:36)
[2020-03-15] MEDS ORDERED: FURO20TA4 PO (17:36)
[2020-03-15] MEDS ORDERED: LORA-258 PO (17:36)
[2020-03-15] MEDS ORDERED: [UNRECOGNIZED DRUG - OTHER] PO (17:36)
[2020-03-15] MEDS ORDERED: ACET-73 PO (17:36)
[2020-03-15] MEDS ORDERED: DONE10TA44 PO (17:36)
[2020-03-15] MEDS ORDERED: GLUC1VIA4 IM/IV (17:36)
[2020-03-15] MEDS ORDERED: ACET325T PO (17:36)
[2020-03-15] MEDS ORDERED: LOPE2CAP PO (17:36)
[2020-03-15] MEDS ORDERED: MOM PO (17:36)
[2020-03-15] MEDS ORDERED: MAG355OR21 PO (17:36)
[2020-03-15] MEDS ORDERED: LACT1CAP72 PO (17:36)
[2020-03-15] MEDS ORDERED: CIPR500S3 PO (17:36)
[2020-03-15] MEDS ORDERED: INSU100V SQ (17:36)
[2020-03-15] MEDS ORDERED: [UNRECOGNIZED DRUG - CODE] TP (17:36)
[2020-03-15] MEDS ORDERED: METR500T PO (17:36)
[2020-03-15] MEDS ORDERED: IBUP-1968 PO (17:36)
[2020-03-15 17:37] LABS: ANION GAP 11 (5-15); CALCIUM 8.9 mg/dL (8.4-11.0); CHLORIDE 101 mmol/L (98-107); CREATININE 2.97 mg/dL (0.55-1.30); GLUCOSE 167 mg/dL (70-99); POTASSIUM 4.4 mmol/L (3.5-5.1); SODIUM SERUM 135 mmol/L (136-145); UREA NITROGEN, BLOOD 81 mg/dL (8-21)
--- NOTE | 2020-03-15 17:37 | NUR ---
Medication reconciliation completed with information provided by PT'S MEDICAL RECORD. Any prior medication reconciliation on file was reviewed and corrected.
[2020-03-15 17:43] LABS: ALANINE AMINOTRANSFERASE 57 U/L (12-78); ALBUMIN 2.9 g/dL (3.4-4.8); ASPARTATE AMINOTRANSFERASE 33 U/L (10-37); TOTAL BILIRUBIN 0.4 mg/dL (0.0-1.0)
[2020-03-15 18:14] LABS: BAND % (MANUAL) 4 % (0-6); BASOPHILS % (MANUAL) 0 % (0-2); EOSINOPHILS % (MANUAL) 7 % (0-7); LYMPHOCYTES % (MANUAL) 4 % (20-46); MONOCYTES % (MANUAL) 9 % (0-11)
--- NOTE | 2020-03-15 18:30 | NUR ---
Called for a bed assignment spoke w/ Suzi ELLIOTT. Waiting for bed assignment
--- NOTE | 2020-03-15 19:09 | NUR ---
report given to Rebecca PACK. Pt is in stable condition. Still waiting for bed assignment
--- NOTE | 2020-03-15 19:59 | NUR ---
Note pranav in EDM - 03/15/20 at 2001 by [email or web address] Patient will be admitted to care of . Admitted to Tele unit. Will go to room 123B. Belongings list completed. Complete and up to date summary report printed. SBAR report to be given at bedside with opportunity for questions.
--- NOTE | 2020-03-15 20:25 | NUR ---
ADMISSION: The patient, MARIA DOLORES MONDRAGON, 84 y/o, F admitted by ROSSANA RICHARDS MD,TO ROOM 123 B , WITH THE DIAGNOSIS OF RENAL FAILURE .
--- NOTE | 2020-03-15 20:35 | NUR ---
INITIAL NOTES Patient is resting, no signs of acute respiratory distress noted, room air. IV site patent, dressings c/d/i. Call light within reach, bed alarm on, bed at lowest position. HOB elevated. Will continue to monitor.
[2020-03-15 21:03] VITALS: BP_SYST 114
--- NOTE | 2020-03-15 22:14 | NUR ---
Patient resting, no signs of acute respiratory distress noted. Warm blankets provided to patient. Will continue to monitor.
[2020-03-16] VITALS: BP_SYST 111
--- NOTE | 2020-03-16 02:00 | NUR ---
Incontinence care provided, patient tolerated well. No signs of distress noted. Will continue to monitor.
[2020-03-16] MEDS ORDERED: LOPERAMIDE HCL 2 MG CAPSULE PO PRN (06:00)
[2020-03-16] MEDS ORDERED: LORazepam 1 MG TABLET PO SCH (06:00)
[2020-03-16] MEDS: NACL 0.9% 1,000 ML IV SCH ×2 (06:15→16:46)
--- NOTE | 2020-03-16 06:58 | NUR ---
CLOSING NOTES Patient is resting, no signs of acute respiratory distress noted, room air. IV site patent, dressings c/d/i, IVF running. Call light within reach, bed alarm on, bed at lowest position. Incontinence care provided throughout shift, patient stated no pain at this time. Blood sugar spot check was 138. All needs met throughout shift. Will endorse care to oncoming shift.
[2020-03-16] MEDS: HYDROcodone/ACETAMIN 5-325 MG TAB (NORCO/ VICODIN) PO SCH ×5 (07:00→23:00)
--- NOTE | 2020-03-16 07:30 | NUR ---
Opening Notes Patient received at this time with no signs of distress. Patient alert, awake, and able to follow some commands. Patient on room air, oxygen saturation 97%. Safety precautions enforced.
[2020-03-16 08:00] VITALS: BP_SYST 149
[2020-03-16] MEDS: LEVOTHYROXINE SODIUM 0.025 MG TABLET PO SCH (08:50)
[2020-03-16] MEDS: METOPROLOL SUCCINATE 50 MG TAB.SR.24H (TOPROL XL) PO SCH (08:50)
[2020-03-16] MEDS: PARoxetine HCL 20 MG TABLET PO SCH (08:50)
--- NOTE | 2020-03-16 09:35 | NUR ---
Nutrition Update Tye Scale 15 noted. Pt admitted for renal failure. Diet: 2 gm Na BMI: 33.3 kg/m2 RD to follow per nutrition care standards.
[2020-03-16 09:44] LABS: BASOPHILS # (AUTO) 0.1 K/uL (0.0-0.2); BASOPHILS % (AUTO) 0.8 % (0.0-2.0); EOSINOPHILS # (AUTO) 0.2 K/uL (0.0-0.4); EOSINOPHILS % (AUTO) 2.8 % (0.0-4.0); HEMATOCRIT 29.3 % (36-48); HEMOGLOBIN 9.7 g/dL (12.0-16.0); LYMPHOCYTES # (AUTO) 0.8 K/uL (1.0-5.5); LYMPHOCYTES % (AUTO) 11.7 % (20.5-51.5); MEAN CORPUSCULAR HEMOGLOBIN 27 pg (27-31); MEAN CORPUSCULAR HGB CONC 33 % (32-36); MEAN CORPUSCULAR VOLUME 82 fL (79.0-98.0); MONOCYTES # (AUTO) 0.5 K/uL (0.0-1.0); MONOCYTES % (AUTO) 7.8 % (1.7-9.3); NEUTROPHILS # (AUTO) 5.2 K/uL (1.8-7.7); NEUTROPHILS % (AUTO) 76.9 % (40.0-70.0); PLATELET COUNT (AUTO) 278 K/uL (130-430); RED BLOOD CELL COUNT(AUTO) 3.56 MIL/uL (4.2-6.2); RED CELL DISTRIBUTION WIDTH 17.6 % (9.0-15.0); WHITE BLOOD COUNT (AUTO) 6.7 K/uL (4.8-10.8)
--- NOTE | 2020-03-16 10:00 | NUR ---
RN Rounds Patient sleeping, but easily arousable at this time. Patient with no signs of distress. Reinforced use of call light.
[2020-03-16 10:17] LABS: ALANINE AMINOTRANSFERASE 42 U/L (12-78); ALBUMIN 2.4 g/dL (3.4-4.8); ANION GAP 10 (5-15); ASPARTATE AMINOTRANSFERASE 29 U/L (10-37); POTASSIUM 4.2 mmol/L (3.5-5.1); SODIUM SERUM 139 mmol/L (136-145); TOTAL BILIRUBIN 0.3 mg/dL (0.0-1.0)
[2020-03-16 10:20] LABS: CHLORIDE 108 mmol/L (98-107)
[2020-03-16 10:21] LABS: CALCIUM 7.7 mg/dL (8.4-11.0); CREATININE 2.15 mg/dL (0.55-1.30); GLUCOSE 245 mg/dL (70-99); UREA NITROGEN, BLOOD 60 mg/dL (8-21)
--- NOTE | 2020-03-16 12:19 | NUR ---
Closing Notes Report given to sales broker using SBAR for continuation of care. Patient calm with no signs of distress. Safety precautions enforced.
--- NOTE | 2020-03-16 12:30 | NUR ---
ASSUMED CARE, PT IN BED. NO DISTRESS NOTED. WILL CONTINUE TO MONITOR.
[2020-03-16 13:31] VITALS: BP_SYST 133
[2020-03-16] MEDS: metroNIDAZOLE 500 MG TABLET PO SCH ×2 (14:31→21:20)
--- NOTE | 2020-03-16 15:10 | NUR ---
SS NOTES: Per RN from [facility], patient came to them for grave disability and was on a 14-day hold prior to transfer. Chary PACK notified.
--- NOTE | 2020-03-16 15:11 | NUR ---
Notes In bed awake,denies any pain or discomfort.repositioned for comfort. IVF infusing well.will monitor.
[2020-03-16 17:29] VITALS: BP_SYST 154
--- NOTE | 2020-03-16 18:12 | NUR ---
Notes Patient is eating dinner. No distress noted. Denies any pain or discomfort. IVF infusing well. will endorse.
--- NOTE | 2020-03-16 19:35 | NUR ---
ROUNDS PATIENT RESTING COMFORTABLY IN BED, NOT IN DISTRESS, VITALS STABLE. ASSESSMENT DONE AND DOCUMENTED. SEE FLOWSHEET. NEEDS ATTENDED TO. SAFETY MEASURES IN PLACED. BED IN LOW AND LOCKED POSITION. CALL LIGHT PLACED WITHIN REACH.
--- NOTE | 2020-03-16 21:15 | NUR ---
EDICATION DUE MEDICATIONS GIVEN SCHEDULED, TOLERATED WELL. WILL CONTINUE TO MONITOR.
[2020-03-16] MEDS: DONEPEZIL HCL 5 MG TABLET (ARICEPT) PO SCH (21:20)
[2020-03-16] MEDS: ATORVASTATIN 10 MG TABLET PO SCH (21:20)
[2020-03-17] VITALS: BP_SYST 139
--- NOTE | 2020-03-17 00:13 | NUR ---
PATIENT RESTING: Patient resting quietly. No acute distress noted. Vital signs within normal range.
--- NOTE | 2020-03-17 02:13 | NUR ---
ROUNDS PATIENT ASLEEP, NO SOB NOR PAIN NOTED, WILL CONTINUE TO MONITOR.
[2020-03-17] MEDS: HYDROcodone/ACETAMIN 5-325 MG TAB (NORCO/ VICODIN) PO SCH ×6 (03:00→23:00)
--- NOTE | 2020-03-17 04:16 | NUR ---
PATIENT RESTING: Patient resting quietly. No acute distress noted. Vital signs within normal range.
[2020-03-17] MEDS: metroNIDAZOLE 500 MG TABLET PO SCH ×3 (05:13→21:06)
[2020-03-17] MEDS: NACL 0.9% 1,000 ML IV SCH ×3 (05:13→18:59)
--- NOTE | 2020-03-17 06:33 | NUR ---
CLOSING NOTES PATIENT AWAKE, NO COMPLAINTS AT THIS TIME, VITALS STABLE. ALL NEEDS ATTENDED TO. SAFETY MEASURES MAINTAINED. CALL LIGHT PLACED WITHIN EACH.
--- NOTE | 2020-03-17 07:15 | NUR ---
RECEIVED REPORT AT BEDSIDE FROM HANDLE BENDER RN. PT ASLEEP AT PRESENT. RESP REG NON-LABORED. NO DISTRESS NOTED.
[2020-03-17 08:15] VITALS: BP_SYST 134
[2020-03-17] MEDS: METOPROLOL SUCCINATE 50 MG TAB.SR.24H (TOPROL XL) PO SCH (09:34)
[2020-03-17] MEDS: PARoxetine HCL 20 MG TABLET PO SCH (09:34)
[2020-03-17] MEDS: LEVOTHYROXINE SODIUM 0.025 MG TABLET PO SCH (09:35)
--- NOTE | 2020-03-17 10:10 | NUR ---
MED PASS AND NURSING ASSESSMENT DONE, PT TOLERATED PO MEDS WELL, ATE 40% OF BREAKFAST, REQUESTED THE PHONE TO CALL HER SON. NAD NOTED, CALM.
[2020-03-17 12:00] VITALS: BP_SYST 130
--- NOTE | 2020-03-17 12:53 | NUR ---
PT W/ LARGE BM, TAYLOR CARE AND LINEN CHANGE DONE. IV SITE NOTED ON BED. WILL RESTART IV AFTER PT EATS LUNCH. PT SET-UP TO EAT LUNCH.
--- NOTE | 2020-03-17 14:30 | NUR ---
NEW IV RE-SITED TO LEFT WRIST AREA, 22 G, POSITIVE FLUSH, AND BLOOD RETURN. PT TOLERATED WELL. REQUESTING TO SPEAK TO HER SON SINCE EARLIER, W/ DIFFICULTY CONTACTING HIM, HOWEVER HE CALLED THE UNIT, CALL CONNECTED TOP PATIENT.
--- NOTE | 2020-03-17 15:30 | NUR ---
S/P SPEAKING TO HER SON PT WAS CALMER, BUT KEPT REPEATING, I WANT TO GO HOME, WHY CAN'T I GO HOME? PER SON PATIENT HAS A CONDO, HOWEVER, SHE CANT LIVE ALONE ANYMORE, HE IS HAVING A DIFFICULT TIME CONVINCING HER OF THIS FACT.
[2020-03-17 16:26] VITALS: BP_SYST 142
--- NOTE | 2020-03-17 17:20 | NUR ---
S/P ATIVAN 0.5 MG PO FOR MILD AGITATED STATE- WANTING TO LEAVE HOSPITAL TO GO HOME, PT IS NOW CALMER, EATING DINNER, AND SMILING.
--- NOTE | 2020-03-17 18:20 | NUR ---
PT ASLEEP AT PRESENT, NAD NOTED.
--- NOTE | 2020-03-17 19:05 | NUR ---
BEDSIDE REPORT TO FERMENTOLOGIST RN. NAD NOTED, PT ASLEEP
--- NOTE | 2020-03-17 19:35 | NUR ---
ROUNDS PATIENT RESTING COMFORTABLY IN BED, NOT IN DISTRESS, VITALS STABLE. DENIES ANY PAIN AND DISCOMFORT AT THIS TIME. ASSESSMENT DONE AND DOCUMENTED. SEE FLOWSHEET. NEEDS ATTENDED TO. SAFETY AND FALL MEASURES IN PLACED. BED IN LOW AND LOCKED POSITION. BED ALARM ON. CALL LIGHT PLACED WITHIN REACH.
[2020-03-17 20:00] VITALS: BP_SYST 147
[2020-03-17] MEDS: ATORVASTATIN 10 MG TABLET PO SCH (21:06)
[2020-03-17] MEDS: DONEPEZIL HCL 5 MG TABLET (ARICEPT) PO SCH (21:06)
--- NOTE | 2020-03-17 21:10 | NUR ---
MEDICATION DUE MEDICATIONS GIVEN SCHEDULED, TOLERATED WELL. WILL CONTINUE TO MONITOR.
[2020-03-18] VITALS: BP_SYST 138
--- NOTE | 2020-03-18 00:16 | NUR ---
ROUNDS PATIENT ASLEEP, NO SOB NOTED, RESPIRATIONS EVEN AND UNLABORED. WILL CONTINUE TO MONITOR.
--- NOTE | 2020-03-18 02:16 | NUR ---
ROUNDS PATIENT SLEEPING, NO SOB NOR PAIN AND DISCOMFORT NOTED, RESPIRATIONS EVEN AND UNLABORED. WILL CONTINUE TO MONITOR.
[2020-03-18] MEDS: HYDROcodone/ACETAMIN 5-325 MG TAB (NORCO/ VICODIN) PO SCH ×6 (03:00→23:00)
--- NOTE | 2020-03-18 04:12 | NUR ---
PATIENT RESTING: Patient resting quietly. No acute distress noted. Vital signs within normal range.
[2020-03-18] MEDS: metroNIDAZOLE 500 MG TABLET PO SCH ×3 (05:32→21:11)
[2020-03-18] MEDS: NACL 0.9% 1,000 ML IV SCH ×2 (05:32→15:45)
[2020-03-18 06:22] LABS: BASOPHILS % (AUTO) 0.5 % (0.0-2.0); EOSINOPHILS # (AUTO) 0.3 K/uL (0.0-0.4); EOSINOPHILS % (AUTO) 3.6 % (0.0-4.0); HEMATOCRIT 26.5 % (36-48); HEMOGLOBIN 8.8 g/dL (12.0-16.0); LYMPHOCYTES # (AUTO) 1.1 K/uL (1.0-5.5); LYMPHOCYTES % (AUTO) 14.7 % (20.5-51.5); MEAN CORPUSCULAR HEMOGLOBIN 27 pg (27-31); MEAN CORPUSCULAR HGB CONC 33 % (32-36); MEAN CORPUSCULAR VOLUME 82 fL (79.0-98.0); MONOCYTES # (AUTO) 0.6 K/uL (0.0-1.0); MONOCYTES % (AUTO) 7.8 % (1.7-9.3); NEUTROPHILS # (AUTO) 5.7 K/uL (1.8-7.7); NEUTROPHILS % (AUTO) 73.4 % (40.0-70.0); PLATELET COUNT (AUTO) 207 K/uL (130-430); RED BLOOD CELL COUNT(AUTO) 3.24 MIL/uL (4.2-6.2); RED CELL DISTRIBUTION WIDTH 17.6 % (9.0-15.0); WHITE BLOOD COUNT (AUTO) 7.7 K/uL (4.8-10.8)
[2020-03-18 06:26] LABS: ALANINE AMINOTRANSFERASE 32 U/L (12-78); ALBUMIN 2.1 g/dL (3.4-4.8); ANION GAP 9 (5-15); ASPARTATE AMINOTRANSFERASE 18 U/L (10-37); CALCIUM 7.4 mg/dL (8.4-11.0); CHLORIDE 111 mmol/L (98-107); CREATININE 1.47 mg/dL (0.55-1.30); GLUCOSE 208 mg/dL (70-99); POTASSIUM 4.7 mmol/L (3.5-5.1); SODIUM SERUM 140 mmol/L (136-145); TOTAL BILIRUBIN 0.3 mg/dL (0.0-1.0); UREA NITROGEN, BLOOD 25 mg/dL (8-21)
--- NOTE | 2020-03-18 06:40 | NUR ---
CLOSING NOTES PATIENT AWAKE, NO COMPLAINTS AT THIS TIME, NEEDS ATTENDED TO. SAFETY AND FALL MEASURES MAINTAINED. CALL LIGHT PLACED WITHIN REACH.
--- NOTE | 2020-03-18 07:40 | NUR ---
OPENING NOTES PT RESTING IN BED, CHEST RISE AND FALL NOTED, EASILY AWAKEN. NONLABORED BREATHING NOTED ON ROOM AIR. NO S/S OF PAIN NOR SOB NOTED. IV LINE INTACT AND PATENT, NO SIGNS OF INFILTRATION NOTED, FLUIDS RUNNING ORDERED. NO ACUTE DISTRESS NOTED. BED LOCKED AND IN LOWEST POSITION. BED ALARM ON. ALL NEEDS MET. CALL LIGHT IN REACH. FALL AND ASPIRATION PRECAUTIONS IN PLACE. CONTINUE TO MONITOR.
[2020-03-18] MEDS: LEVOTHYROXINE SODIUM 0.025 MG TABLET PO SCH (08:03)
[2020-03-18] MEDS: PARoxetine HCL 20 MG TABLET PO SCH (08:03)
[2020-03-18] MEDS: METOPROLOL SUCCINATE 50 MG TAB.SR.24H (TOPROL XL) PO SCH (08:08)
--- NOTE | 2020-03-18 08:08 | NUR ---
routine meds administered as ordered per md, education given, tolerated well. continue to monitor.
[2020-03-18 08:16] VITALS: BP_SYST 139
--- NOTE | 2020-03-18 11:02 | NUR ---
ROUNDS PT SLEEPING IN BED, CHEST RISE AND FALL NOTED. EASILY AWAKEN, PT DENIES PAIN AND SOB AT THIS TIME. ALL NEEDS MET. CALL LIGHT IN REACH. CONTINUE TO MONITOR.
[2020-03-18 12:00] VITALS: BP_SYST 137
--- NOTE | 2020-03-18 13:08 | NUR ---
ROUNDS PT RESTING IN BED, CHEST RISE AND FALL NOTED. EASILY AWAKEN. NO ACUTE DISTRESS NOTED. ALL NEEDS MET. CALL LIGHT IN REACH. CONTINUE TO MONITOR.
--- NOTE | 2020-03-18 14:02 | NUR ---
ROUTINE MEDS ROUTINE MEDS ADMINISTERED ORDERED PER MD, EDUCATION GIVEN, TOLERATED WELL. PT DENIES PAIN AT THIS TIME, NORCO NOT ADMINISTERED. CONTINUE TO MONITOR.
--- NOTE | 2020-03-18 15:09 | NUR ---
PT HAD BM, CLEANED PT, APPLIED Z-GUARD, TOLERATED WELL. CONTINUE TO MONITOR.
--- NOTE | 2020-03-18 15:46 | NUR ---
IV FLUIDS ADMINISTERED ORDERED PER MD, EDUCATION GIVEN, TOLERATED WELL. CONTINUE TO MONITOR.
[2020-03-18 16:00] VITALS: BP_SYST 137
--- NOTE | 2020-03-18 17:40 | NUR ---
ROUNDS PT EATING DINNER, SITTING UP IN BED, TOLERATING WELL. CONTINUE TO MONITOR.
--- NOTE | 2020-03-18 18:51 | NUR ---
CLOSING NOTES PT RESTING IN BED, CHEST RISE AND FALL NOTED, EASILY AWAKEN. PT DENIES PAIN AND SOB AT THIS TIME. NONLABORED BREATHING NOTED ON ROOM AIR. IV LINE INTACT AND PATENT, NO SIGNS OF INFILTRATION NOTED, FLUIDS RUNNING ORDERED. PT CLEAN AND DRY. NO ACUTE DISTRESS NOTED. BED LOCKED AND IN LOWEST POSITION. BED ALARM ON. ALL NEEDS MET. CALL LIGHT IN REACH. FALL AND ASPIRATION PRECAUTIONS IN PLACE. WILL ENDORSE TO NOC NURSE.
--- NOTE | 2020-03-18 19:35 | NUR ---
ROUNDS PATIENT RESTING COMFORTABLY IN BED, NOT IN DISTRESS, VITALS STABLE. DENIES ANY PAIN AND DISCOMFORT AT THIS TIME. ASSESSMENT DONE AND DOCUMENTED. SEE FLOWSHEET, NEEDS ATTENDED TO. CALL LIGHT PLACED WITHIN REACH.
[2020-03-18] MEDS: ATORVASTATIN 10 MG TABLET PO SCH (21:11)
[2020-03-18] MEDS: DONEPEZIL HCL 5 MG TABLET (ARICEPT) PO SCH (21:11)
[2020-03-19] VITALS: BP_SYST 138
--- NOTE | 2020-03-19 00:12 | NUR ---
PATIENT RESTING: Patient resting quietly. No acute distress noted. Vital signs within normal range.
--- NOTE | 2020-03-19 02:15 | NUR ---
ROUNDS PATIENT SLEEPING, RESPIRATIONS EVEN AND UNLABORED, WILL CONTINUE TO MONITOR.
[2020-03-19] MEDS: HYDROcodone/ACETAMIN 5-325 MG TAB (NORCO/ VICODIN) PO SCH ×5 (03:00→23:00)
[2020-03-19] MEDS: NACL 0.9% 1,000 ML IV SCH ×3 (04:15→23:07)
--- NOTE | 2020-03-19 04:16 | NUR ---
PATIENT RESTING: Patient resting quietly. No acute distress noted. Vital signs within normal range.
[2020-03-19] MEDS: metroNIDAZOLE 500 MG TABLET PO SCH ×3 (05:50→21:23)
--- NOTE | 2020-03-19 06:21 | NUR ---
CLOSING NOTES PATIENT AWAKE, VITALS STABLE, NO COMPLAINTS AT THIS TIME. ALL NEEDS ATTENDED TO. SAFETY MEASURES MAINTAINED. CALL LIGHT PLACED WITHIN REACH.
[2020-03-19 06:36] LABS: BASOPHILS # (AUTO) 0.1 K/uL (0.0-0.2); BASOPHILS % (AUTO) 0.7 % (0.0-2.0); EOSINOPHILS # (AUTO) 0.2 K/uL (0.0-0.4); EOSINOPHILS % (AUTO) 3.1 % (0.0-4.0); HEMATOCRIT 26.5 % (36-48); HEMOGLOBIN 8.7 g/dL (12.0-16.0); LYMPHOCYTES # (AUTO) 1.1 K/uL (1.0-5.5); MEAN CORPUSCULAR HEMOGLOBIN 27 pg (27-31); MEAN CORPUSCULAR HGB CONC 33 % (32-36); MEAN CORPUSCULAR VOLUME 83 fL (79.0-98.0); MONOCYTES # (AUTO) 0.5 K/uL (0.0-1.0); MONOCYTES % (AUTO) 6.5 % (1.7-9.3); NEUTROPHILS # (AUTO) 5.6 K/uL (1.8-7.7); NEUTROPHILS % (AUTO) 74.7 % (40.0-70.0); PLATELET COUNT (AUTO) 182 K/uL (130-430); RED BLOOD CELL COUNT(AUTO) 3.21 MIL/uL (4.2-6.2); RED CELL DISTRIBUTION WIDTH 17.8 % (9.0-15.0); WHITE BLOOD COUNT (AUTO) 7.5 K/uL (4.8-10.8)
[2020-03-19 07:04] LABS: ALANINE AMINOTRANSFERASE 27 U/L (12-78); ALBUMIN 2.3 g/dL (3.4-4.8); ANION GAP 9 (5-15); ASPARTATE AMINOTRANSFERASE 21 U/L (10-37); CALCIUM 7.7 mg/dL (8.4-11.0); CHLORIDE 108 mmol/L (98-107); CREATININE 1.34 mg/dL (0.55-1.30); GLUCOSE 279 mg/dL (70-99); POTASSIUM 4.6 mmol/L (3.5-5.1); SODIUM SERUM 138 mmol/L (136-145); TOTAL BILIRUBIN 0.3 mg/dL (0.0-1.0); UREA NITROGEN, BLOOD 20 mg/dL (8-21)
[2020-03-19 07:14] LABS: TOTAL IRON BIND. CAPACITY 185 ug/dL (250-450)
--- NOTE | 2020-03-19 07:28 | NUR ---
AM ROUNDS: PATIENT SLEEPING DURING ROUNDS. CALL LIGHT WITH IN REACH. BED LOCKED AT LOWEST POSITION. BED ALARM ON. NO DISTRESS.
[2020-03-19 07:50] VITALS: BP_SYST 129
[2020-03-19] MEDS: METOPROLOL SUCCINATE 50 MG TAB.SR.24H (TOPROL XL) PO SCH (08:28)
[2020-03-19] MEDS: PARoxetine HCL 20 MG TABLET PO SCH (08:28)
[2020-03-19] MEDS: LEVOTHYROXINE SODIUM 0.025 MG TABLET PO SCH (08:28)
--- NOTE | 2020-03-19 08:30 | NUR ---
MED PASS: TOLERATED ALL HER ORAL MEDS. NO PROBLEM.
[2020-03-19 12:36] VITALS: BP_SYST 133
--- NOTE | 2020-03-19 12:37 | NUR ---
SS NOTES: CM received order for DCP. COMMUNICATIONS MAINTAINER phoned Christy RN to page Dr. Rios for consult since the patient came from [facility] on a 14-day hold initially.
--- NOTE | 2020-03-19 15:25 | NUR ---
CONSULTATION PAGED/CALLED Reason for Consultation: [] PSYCH EVAL Person Who was Notified: [] YESIKA Consulting Physician: [] DR HAN Traffic Chief Specialty: [] PSYCH Ordering Physician: [] DR RICHARDS
--- NOTE | 2020-03-19 16:16 | NUR ---
RN ROUNDS: RESTING DURING ROUNDS. NO ACUTE DISTRESS.
[2020-03-19 16:17] VITALS: BP_SYST 155
--- NOTE | 2020-03-19 18:15 | NUR ---
IV INFILTRATED: IV REMOVED AT LEFT WRIST.DRY GAUZE APPLIED,NO BLEEDING NOTED. RE SITED AT RIGHT FOREARM USING G#22,CONTINUE IV FLUIDS ORDERED.
--- NOTE | 2020-03-19 18:33 | NUR ---
CLOSING NOTES: PATIENT RESTING. IV FLUIDS RUNNING WELL. CALL LIGHT WITH IN REACH. BED LOCKED AT LOWEST POSITION. BED ALARM ON. STABLE.
--- NOTE | 2020-03-19 19:30 | NUR ---
OPENING NOTES: Patient is resting in bed, alert to name and place. She is on room air with unlabored breathing. She is not exhibiting any s/s of distress or discomfort. IV noted on RFA with dry and intact dressing. She does not have any concerns at this time. Ensured all safety precautions. Bed is locked and in the lowest position with alarm on, call light within reach.
[2020-03-19 20:00] VITALS: BP_SYST 167
--- NOTE | 2020-03-19 21:20 | NUR ---
MEDICATION ADMINISTRATION: Patient resting in bed with no s/s of distress or discomfort. Her blood pressure was elevated despite changing site and retaking. Will continue to monitor blood pressure and report to MD if it continues to be elevated. Patient takes Metoprolol as scheduled AM med. Medications were administered as ordered, pt tolerated well.
[2020-03-19] MEDS: DONEPEZIL HCL 5 MG TABLET (ARICEPT) PO SCH (21:23)
[2020-03-19] MEDS: ATORVASTATIN 10 MG TABLET PO SCH (21:23)
--- NOTE | 2020-03-19 22:00 | NUR ---
PATIENT REQUESTING AMBIEN: Patient called, states she has been unable to sleep and is requesting PRN sleep aid. Informed patient she has an order for Ambien. Administered medication as ordered, pt tolerated well. Reminded patient to use call light for assistance and not attempt to get out of bed. She verbalized understanding and does not have any questions or concerns at this time. Will continue to monitor patient.
[2020-03-19] MEDS: ZOLPIDEM TARTRATE 5 MG TABLET PO PRN (22:10)
--- NOTE | 2020-03-19 23:47 | NUR ---
ELEVATED BLOOD PRESSURE: Spoke with Dr. Chau and reported pt's blood pressure of 167/60 at 1999 and 178/[address] Chau gave verbal order for Clonidine 0.1 mg PO every 6 hours as needed. I have repeated and confirmed the order with MD and will place order as given.
[2020-03-20] VITALS: BP_SYST 178
--- NOTE | 2020-03-20 00:15 | NUR ---
MEDICATIONS ADMINISTRATION: Informed patient that Dr. Chau has ordered Clonidine as needed every 6 hours for elevated blood pressure. She verbalized understanding and medications was given as ordered. Patient tolerated well. Bed is in the lowest position with alarm on. Call light within reach.
[2020-03-20] MEDS: cloNIDine HCL 0.1 MG TABLET PO PRN ×2 (00:17→17:27)
--- NOTE | 2020-03-20 00:30 | NUR ---
RN ROUNDS: PATIENT IS LAYING IN BED, CURRENTLY SLEEPING. SHE IS NOT EXHIBITING ANY S/S OF ACUTE DISTRESS. BREATHING UNLABORED AND EVEN ON RA. IVF INFUSING 100 ML/HR. NO SIGN OF INFILTRATION. ALL SAFETY MEASURES ARE MAINTAINED. CALL LIGHT SI WITH PATIENT. WILL CONTINUE TO MONITOR PATIENT. Addendum: 03/21/20 at 0106 by Alejandra Barraza RN DOCUMENTED DATE IS 03/21/2020
--- NOTE | 2020-03-20 02:00 | NUR ---
RN ROUNDS: Patient is laying in bed and is currently asleep. She is not having any s/s of distress or discomfort. Will continue to monitor patient.
[2020-03-20] MEDS: HYDROcodone/ACETAMIN 5-325 MG TAB (NORCO/ VICODIN) PO SCH ×5 (03:00→19:00)
[2020-03-20 04:00] VITALS: BP_SYST 154
--- NOTE | 2020-03-20 04:00 | NUR ---
RN ROUNDS: Patient is laying in bed and continues to be asleep. She has unlabored breathing on room air. Bed is in the lowest position and call light within reach. Will continue to monitor patient.
[2020-03-20] MEDS: metroNIDAZOLE 500 MG TABLET PO SCH ×3 (06:12→21:14)
--- NOTE | 2020-03-20 06:48 | NUR ---
CLOSING NOTES: Patient is resting in bed, and appears to be asleep. She is on room air with unlabored breathing. She is not exhibiting any s/s of distress or discomfort. IV on RFA patent and intact with dry and intact dressing. Ensured all safety precautions. Bed is locked and in the lowest position with alarm on, call light within reach. All needs were met throughout shift. Will endorse to dayshift nurse.
--- NOTE | 2020-03-20 07:35 | NUR ---
AM ROUNDS: PATIENT SLEEPING DURING ROUNDS. IV FLUIDS RUNNING AT RIGHT ARM INTACT. CALL LIGHT WITH IN REACH. BED LOCKED AT LOWEST POSITION. NO ACUTE DISTRESS.
[2020-03-20 07:45] VITALS: BP_SYST 131
[2020-03-20] MEDS: METOPROLOL SUCCINATE 50 MG TAB.SR.24H (TOPROL XL) PO SCH (08:33)
[2020-03-20] MEDS: LEVOTHYROXINE SODIUM 0.025 MG TABLET PO SCH (08:33)
[2020-03-20] MEDS: PARoxetine HCL 20 MG TABLET PO SCH (08:33)
--- NOTE | 2020-03-20 08:33 | NUR ---
MED PASS: TOOK ALL HER MEDS WELL. WITH NO PROBLEM.
[2020-03-20] MEDS: NACL 0.9% 1,000 ML IV SCH ×2 (08:35→17:52)
--- NOTE | 2020-03-20 12:08 | NUR ---
Farm Machinery Mechanic Notes/[facility] transfer: DIRECTOR ENVIRONMENTAL received order to discharge to [facility]. Pending [phone] Eval from Psych; Christy PACK notified. DIRECTOR ENVIRONMENTAL spoke with [facility] intake @ [phone], clinicals faxed for review. SS will fax [phone] to [facility] when received.
[2020-03-20 12:18] VITALS: BP_SYST 152
--- NOTE | 2020-03-20 12:30 | NUR ---
LUNCH: PATIENT ON THE BED AND HAVING LUNCH. STABLE.
--- NOTE | 2020-03-20 14:40 | NUR ---
MEDS: PATIENT WOKE UP AND TOOK HER MEDS WELL. NO PROBLEM.
--- NOTE | 2020-03-20 15:45 | NUR ---
PAGED PAGED AT [phone] SPOKE WITH DIAMOND
[2020-03-20 16:00] VITALS: BP_SYST 162
--- NOTE | 2020-03-20 17:08 | NUR ---
PSYCHE CALLED BACK: DELORES RN SPOKE WITH DR COLEMAN AND AWARE PATIENT FOR PSYCHE EVALUATION TO CAROLANN PASCUAL AND HE WILL SEE PATIENT LATER.
--- NOTE | 2020-03-20 17:29 | NUR ---
CATAPRES PO: DUE PO CATAPRES GIVEN FOR DK=[id number].
--- NOTE | 2020-03-20 18:44 | NUR ---
END OF SHIFT: PATIENT JUST FINISHED DINNER. WILL ENDORSED TO NIGHT NURSE TO MONITOR BP. CALL LIGHT WITH IN REACH. BED LOCKED AT LOWEST POSITION. AWAITS FOR PSYCHE EVALUATION. NO ACUTE DISTRESS.
--- NOTE | 2020-03-20 19:35 | NUR ---
OPENING NOTES: PATIENT IS RESTING IN BED, ALERT AND ORIENTED X 2. BREATHING UNLABORED AND EVEN ON RA. PATIENT IS NOT EXHIBITING ANY S/S OF ACUTE DISTRESS. IV NOTED ON RFA. NO SIGN OF INFILTRATION. ALL SAFETY PRECAUTIONS ARE IN PLACE. CALL LIGHT IS WITH PATIENT. WILL CONTINUE TO MONITOR.
[2020-03-20 20:00] VITALS: BP_SYST 156
[2020-03-20] MEDS: DONEPEZIL HCL 5 MG TABLET (ARICEPT) PO SCH (21:14)
[2020-03-20] MEDS: ATORVASTATIN 10 MG TABLET PO SCH (21:14)
[2020-03-20] MEDS: ZOLPIDEM TARTRATE 5 MG TABLET PO PRN (21:18)
--- NOTE | 2020-03-20 21:23 | NUR ---
MED PASS: PATIENT GIVEN SCHEDULED MEDICATIONS. PATIENT TOLERATED WELL. WILL CONTINUE TO MONITOR.
[2020-03-21] VITALS: BP_SYST 153
--- NOTE | 2020-03-21 00:15 | NUR ---
RN ROUNDS: PATIENT IS SLEEPING. RESPIRATION IS EVEN AND UNLABORED. IVF INFUSING AT 100 ML/HR. NO SIGN OF INFILTRATION NOTED. SAFETY AND FALL PRECAUTIONS ARE IN PLACE. WILL CONTINUE TO MONITOR.
--- NOTE | 2020-03-21 03:02 | NUR ---
RN ROUNDS: PATIENT IS IN BED, CURRENTLY SLEEPING. RESPIRATION IS EVEN AND UNLABORED. IVF INFUSING AT 100 ML/HR. NO SIGN OF INFILTRATION NOTED. SAFETY AND FALL PRECAUTIONS ARE IN PLACE. WILL CONTINUE TO MONITOR.
[2020-03-21] MEDS: NACL 0.9% 1,000 ML IV SCH (04:37)
[2020-03-21] MEDS: metroNIDAZOLE 500 MG TABLET PO SCH ×3 (05:53→22:10)
--- NOTE | 2020-03-21 06:15 | NUR ---
CLOSING NOTE: PATIENT GIVEN MORNING MED. TOLERATED WELL. BREATHING UNLABORED AND EVEN ON RA. IVF INFUSING AT 100 ML/HR. NO SIGN OF INFILTRATION NOTED. BED LOCKED IN LOWEST POSITION, CALL LIGHT IS WITH PATIENT. WILL ENDORSE PATIENT CARE TO DAY SHIFT RN.
--- NOTE | 2020-03-21 07:15 | NUR ---
NURSE NOTE RECEIVED BEDSIDE SBAR FROM NIGHT RN, PATIENT IN BED, RESPIRATIONS EVEN, NON LABORED, BED IN LOW AND LOCKED POSITION, CALL LIGHT WITHIN REACH,
[2020-03-21 08:00] VITALS: BP_SYST 146
[2020-03-21] MEDS: LEVOTHYROXINE SODIUM 0.025 MG TABLET PO SCH (08:19)
[2020-03-21] MEDS: PARoxetine HCL 20 MG TABLET PO SCH (08:19)
[2020-03-21] MEDS: METOPROLOL SUCCINATE 50 MG TAB.SR.24H (TOPROL XL) PO SCH (08:23)
--- NOTE | 2020-03-21 08:24 | NUR ---
nurse note patient incontinent of bowel and bladder, provided amanda care, changed linens, repositioned patient, obtained vs, administered morning medications. patient tolerated well no complaints of pain or discomfort
--- NOTE | 2020-03-21 08:46 | NUR ---
SS Notes/Psych transfer: Patient on a 5150 hold for GD; faxed to [facility].
--- NOTE | 2020-03-21 09:57 | NUR ---
Dietitian Recommendations *Recommend add CCHO modifier to Puree, 2g Na Diet *If diarrhea persists, recommend Banatrol TID. Please see Nutrition Assessment for details. EP,RD
--- NOTE | 2020-03-21 10:00 | NUR ---
NURSE NOTE PATIENT IN BED, RESPIRATIONS EVEN, NON LABORED, BED IN LOW AND LOCKED POSITION, CALL LIGHT WITHIN REACH, BED ALARM ON, PATIENT DENIES ANY PAIN OR DISCOMFORT
--- NOTE | 2020-03-21 11:45 | NUR ---
DR RICHARDS PAGED REGARDING INCREASED BP
--- NOTE | 2020-03-21 11:50 | NUR ---
ORDERS INFORMED DR RICHARDS OF PATIENT BP, NEW ORDERS RECEIVED
[2020-03-21] MEDS ORDERED: cloNIDine HCL 0.1 MG TABLET PO ONE (12:00)
--- NOTE | 2020-03-21 12:08 | NUR ---
NURSE NOTE ADMINISTERED MEDICATION ORDERED, PATIENT DENIES ANY PAIN OR DISCOMFORT, SITTING IN BED, EATING LUNCH, BED IN LOW AND LOCKED POSITION CALL LIGHT WITHIN REACH, BED ALARM ON
[2020-03-21 12:29] VITALS: BP_SYST 187
--- NOTE | 2020-03-21 12:47 | NUR ---
INVENTORY INVENTORY TAKEN FOR TRANSFER, MISSING BLUE COIN PURSE, INFORMED RESOURCE NURSE. ALL OTHER ITEMS ACCOUNTED FOR
[2020-03-21 12:55] VITALS: BP_SYST 150
--- NOTE | 2020-03-21 13:08 | NUR ---
Geomorphology Teacher: PRODUCTION DESIGNER is setting up transfer to [facility]. Pt. is on a 5150 PRODUCTION DESIGNER made arrangements for pts. transfer to [facility] today. Pt. is on a 5150 hold. There was no bed assignment at the time of this transfer prep. Rn stated this will be a BLS. This was arranged on Will Call. PRODUCTION DESIGNER will remain available as needed.
--- NOTE | 2020-03-21 13:29 | NUR ---
Spoke w/ patient's son G[facility] He was given the telephone # for Dr Loza to discuss the patient's plan of care.
--- NOTE | 2020-03-21 14:00 | NUR ---
NURSE NOTE SPOKE WITH EDU AT [facility], HE STATED THAT THEY DO NOT HAVE A BED FOR PATIENT AND WILL CALL BACK WHEN BED IS ASSIGNED
--- NOTE | 2020-03-21 15:15 | NUR ---
NURSE NOTE PATIENT INCONTINENT OF BOWEL AND BLADDER, CLEANSED TAYLOR AREA, APPLIED Z GUARD, CHANGED LINENS, REPOSITIONED PATIENT, BED IN LOW AND LOCKED POSITION, CALL LIGHT WITHIN REACH, BED ALARM ON, PATIENT DENIES ANY PAIN OR DISCOMFORT
[2020-03-21 16:19] VITALS: BP_SYST 153
--- NOTE | 2020-03-21 17:30 | NUR ---
CAROLANN PASCUAL SPOKE WITH LAYA AT [facility], NO BED HAS BEEN ASSIGNED FOR PATIENT, SHE WILL CALL WHEN BED BECOMES AVAILABLE
--- NOTE | 2020-03-21 18:00 | NUR ---
NURSE NOTE PROVIDED PATIENT WITH DINNER, RESPIRATIONS EVEN, NON LABORED, BED IN LOW AND LOCKED POSITION, CALL LIGHT WITHIN REACH, BED ALARM ON
[2020-03-21] MEDS: HYDROcodone/ACETAMIN 5-325 MG TAB (NORCO/ VICODIN) PO SCH ×2 (19:00→22:10)
[2020-03-21 19:46] VITALS: BP_SYST 123
--- NOTE | 2020-03-21 19:46 | NUR ---
CLOSING NOTE PROVIDED SBAR TO NIGHT RN, PATIENT IN BED, RESPIRATIONS EVEN, NON LABORED, BED IN LOW AND LOCKED POSITION, CALL LIGHT WITHIN REACH, BED ALARM ON, ENDORSED CARE TO NIGHT RN
--- NOTE | 2020-03-21 19:46 | NUR ---
INITIAL NOTES PATIENT IS STABLE AND LAYING IN BED. NO S/S OF RESPIRATORY DISTRESS NOTED. CALL LIGHT IN REACH. BED IS LOCKED, ALARMED, AND AT THE LOWEST POSITION. PATIENT SUCCESSFULLY DEMONSTRATES USAGE OF CALL LIGHT. PLAN OF CARE IS DISCUSSED WITH PATIENT. FALL, SAFETY, ASPIRATION, AND RESPIRATORY PRECAUTIONS WILL BE IN PLACE THROUGHOUT THE SHIFT. Addendum: 03/21/20 at 2255 by Katie Fallon RN PER AM NURSE, FLUIDS STOPPED DUE TO BP PER MD.
[2020-03-21] MEDS: ATORVASTATIN 10 MG TABLET PO SCH (20:10)
[2020-03-21] MEDS: DONEPEZIL HCL 5 MG TABLET (ARICEPT) PO SCH (20:10)
--- NOTE | 2020-03-21 21:46 | NUR ---
PATIENT IS STABLE AND SLEEPING IN BED. NO S/S OF RESPIRATORY DISTRESS NOTED. CALL LIGHT IN REACH.
--- NOTE | 2020-03-21 22:46 | NUR ---
PATIENT URINATED AT THIS TIME. PATIENT WAS CLEANED, CHANGED, AND REPOSITION FOR COMFORT.
--- NOTE | 2020-03-22 | NUR ---
ENDORSEMENT OF CARE. SBAR REPORT ENDORSED TO SIRENA PAINTING. PATIENT IS STABLE AND LAYING IN BED. NO S/S OF RESPIRATORY DISTRESS NOTED. CALL LIGHT IN REACH.
[2020-03-22 00:01] VITALS: BP_SYST 155
--- NOTE | 2020-03-22 00:15 | NUR ---
SBAR Received SBAR report; patient in room resting in bed, calm and quiet. No s/sx of distress. IV is SL. Bed is locked in lowest position, bed alarm on.
[2020-03-22] MEDS: HYDROcodone/ACETAMIN 5-325 MG TAB (NORCO/ VICODIN) PO SCH ×4 (03:00→15:00)
--- NOTE | 2020-03-22 03:20 | NUR ---
Awake Patient is awake, sitting up in bed. Pad is soiled, provided amanda-care, new pad and linen.
--- NOTE | 2020-03-22 03:40 | NUR ---
Sit on chair Patient doesn't want to lay down and wants to sit on bed w/legs dangle. I assisted her to sit on chair at bedside. I (nurse) am charting by the door to keep an eye on patient.
--- NOTE | 2020-03-22 05:02 | NUR ---
Returned to bed Patient returned to bed, provided with clean bed linen and warm blanket. No distress, non labored breathing. Safety precautions maintained.
[2020-03-22] MEDS: metroNIDAZOLE 500 MG TABLET PO SCH ×2 (06:33→15:58)
--- NOTE | 2020-03-22 06:35 | NUR ---
Flagyl Flagyl po given, patient agreed to take med, cooperative and swallowed w/out difficulty. She reports no pain.
--- NOTE | 2020-03-22 06:50 | NUR ---
closing note Patient resting in bed in comfortable position. No distress, non labored breathing. Needs met throughout shift, will endorse care to day shift nurse.
--- NOTE | 2020-03-22 07:45 | NUR ---
AM ROUNDS: PATIENT ASLEEP DURING ROUNDS. CALL LIGHT WITH IN REACH. BED LOCKED AT LOWEST POSITION. BED ALARM ON. NO ACUTE DISTRESS.
[2020-03-22 08:26] VITALS: BP_SYST 163
[2020-03-22] MEDS: PARoxetine HCL 20 MG TABLET PO SCH (08:28)
[2020-03-22] MEDS: METOPROLOL SUCCINATE 50 MG TAB.SR.24H (TOPROL XL) PO SCH (08:28)
[2020-03-22] MEDS: LEVOTHYROXINE SODIUM 0.025 MG TABLET PO SCH (08:28)
--- NOTE | 2020-03-22 10:05 | NUR ---
Bit Welder Notes: SALESPERSON NEW CARS phoned patient's son Goyo regarding transfer to [facility]. Pt is still waiting for Dr. Hamm to call him regarding the hold that was placed. Christy PACK notified of status. Addendum: 03/22/20 at 1056 by Siobhan GUEVARA SALESPERSON NEW CARS received a call from Dr. Hamm who is coming to re-assess the patient sometime today. ISMAEL informed [facility] and spoke with Mela PACK that patient might be going back to [place], Mela requested Covid result; faxed. Addendum: 03/22/20 at 1552 by Siobhan GUEVARA SALESPERSON NEW CARS spoke with Mery PACK from [facility] regarding the clinicals faxed. Per Mery, pt can be accepted back at the facility, pending revised discharge order back to home. If patient is discharged today, luma Nance @ [phone] can transport pt back home. Jess CAVAZOS has already informed bedside nurseChristy regarding d/c order. RENO/MACY will follow up. Addendum: 03/22/20 at 1623 by Siobhan GUEVARA [facility] (p:[phone], f: [phone]). Contacts: Mela Ordonez RN.
--- NOTE | 2020-03-22 10:39 | NUR ---
PSYCH MD DR ALICEA WAS CALLED, RE: DISCHARGE TO PSYCH FACILITY ([facility]) WHICH THE SON REFUSES FOR MOM TO RETURN. THE SON BELIEVES THAT IT IS MORE OF A COMMUNICATION ISSUE AND MOM IS A MISPLACED IN THE PSYCH FACILITY. THE SON IS REQUESTING FOR A REEVALUATION WITH AN OFFICIAL RESTROOMS OR LOUNGES MAID. MOM SPEAKS ONLY MALTESE.
--- NOTE | 2020-03-22 10:50 | NUR ---
DR ALICEA CALLED BACK AND ASKED FOR MANAGER OF LEARNING. TRANSFERED CALLED TO JUSTYNA, THE [employer]IC[employer] EQUIPMENT TECHNICIAN.
--- NOTE | 2020-03-22 11:22 | NUR ---
RN ROUNDS: PATIENT SPEAKS LITTLE LAO AND FOLLOW COMMANDS.ASSISTED PATIENT ON SITTING POSITION,ON THE BED THEN BACK TO BED. STABLE. TURN BED ALARM ON.
[2020-03-22] MEDS: cloNIDine HCL 0.1 MG TABLET PO PRN (11:37)
--- NOTE | 2020-03-22 11:38 | NUR ---
CATAPRES PO : DUE PO CATAPRES 0.1MG PO GIVEN FOR NU=[id number].
[2020-03-22 12:00] VITALS: BP_SYST 167
--- NOTE | 2020-03-22 12:30 | NUR ---
PSYCHE ROUNDS: DR Elisa VALERIO SEEN PATIENT IN THE ROOM AND TALK TO HER AND PT UNDERSTANDS INSTRUCTIONS GIVEN. WITH ORDERS DISCONTINUE 51/50 AND OKAY TO BE DC BACK TO [facility] OR SNF.
--- NOTE | 2020-03-22 14:00 | NUR ---
CASE MGT: SPOKE TO ANN MARIE AND AWARE THAT PSYCHE RELEASE PT FROM .OK TO BE DC TO [facility] OR SNF.CASE MGT ANN MARIE TO CALL [facility] FOR TRANSPORT IF ACCEPTED.
[2020-03-22 16:06] VITALS: BP_SYST 144
[2020-03-22 16:41] VITALS: BP_SYST 144
--- NOTE | 2020-03-22 17:49 | NUR ---
PAGE: SPOKE WITH DR RICHARDS AND WITH ORDERS DC TO [facility] AND [facility].
--- NOTE | 2020-03-22 17:50 | NUR ---
CALLED [facility]: SPOKE WITH JACKSON STAFF FROM [facility] AND INFORMED THEM PATIENT DC BACK TO [facility] AND SON YAZMIN WILL PICK HER UP AT 1830 PM GOING TO [facility].
--- NOTE | 2020-03-22 18:26 | NUR ---
RN ROUNDS: WAITING FOR PATIENT'S RIDE. DINNER SERVE BY SAFETY DEPOSIT CLERK.
--- NOTE | 2020-03-22 18:55 | NUR ---
D/C Patient Patient given medication reconciliation form and D/C instructions. Exit Care provided. Patient verbalized understanding. MD discussed with patient the results and treatment provided. Wheeled by Well Puller Head for discharge to home([facility]). Patient in stable condition, ID band removed. IV catheter removed, intact and dressing applied, no active bleeding. Patient's son Goyo drive patient to [facility]. All belongings sent with patient.
== END 2020-03-22 17:55 | disposition home or self-care (01) | DRG 682 ==
LOC: SED 16:17 → STU 18:27 → SMU 03-16 10:07
PROVIDERS: ADMIT Internal Medicine Hospice and Palliative Medicine; ATTEND Internal Medicine Hospice and Palliative Medicine
DX: N17.0 Acute kidney failure with tubular necrosis (principal); E43 Unspecified severe protein-calorie malnutrition; E11.9 Type 2 diabetes mellitus without complications; I10 Essential (primary) hypertension; F03.90 Unspecified dementia, unspecified severity, without behavioral disturbance, psychotic disturbance, mood disturbance, and anxiety; Z68.29 Body mass index [BMI] 29.0-29.9, adult; F29 Unspecified psychosis not due to a substance or known physiological condition; Z20.828 Contact with and (suspected) exposure to other viral communicable diseases
CPT/HCPCS: 36415; 76770; 80053; 82607; 82746; 82962; 83036; 83540-TC; 83550-TC; 85007; 85025; 85027; 87081; 96360; 96361; 99291; G0378; J7030; U0003